=== PATIENT | female | born 1960 | race Caucasian/White ===

== ENCOUNTER 2019-09-19 11:05 | Emergency (ER) | payer MEDICARE ==
--- NOTE | 2019-09-19 11:09 | ERPHSYRPT ---
- History of Present Illness Time Seen by Provider: 09/19/19 11:09 Source: patient Exam Limitations: no limitations Physician History: This is a 59-year-old female who has metastatic breast cancer and has all intervention for her breast cancer. Patient was evaluated by an aide over the weekend. This aid is an employee of the patient's home health provider. The aide gave report to the home health service and stated that she performed the 10th test on the patient's skin and felt that the patient might be dehydrated. The instructions to this patient were to follow-up with your primary care doctor or go to the emergency room. Patient contacted her primary care physician who had not called her back and therefore she came to the emergency room. Patient is completely without complaints at all. Patient has no nausea no vomiting no diarrhea. She has no abdominal pain. She has been drinking fluids. She has no urinary tract infection symptoms. She is urinating normally for her per her report. Modifying Factors: Improves With: nothing Associated Symptoms: denies symptoms Allergies/Adverse Reactions: No Known Drug Allergies Allergy (Verified 09/19/19 11:24) Home Medications: Amlodipine Besylate 5 mg PO DAILY 09/29/14 [History] Hydrochlorothiazide 25 mg PO DAILY 09/29/14 [History] Metoprolol Succinate 50 mg PO DAILY 09/29/14 [History] Pravastatin Sodium 20 mg PO DAILY 09/29/14 [History] Anastrozole 1 mg PO DAILY 09/19/19 [History] Fluoxetine HCl 10 mg PO DAILY 09/19/19 [History] Hx Tetanus, Diphtheria Vaccination/Date Given: Yes (UNKNOWN) Hx Influenza Vaccination/Date Given: No Hx Pneumococcal Vaccination/Date Given: No - Review of Systems Constitutional: No Symptoms Eyes: No Symptoms Ears, Nose, & Throat: No Symptoms Respiratory: No Symptoms Cardiac: No Symptoms Abdominal/Gastrointestinal: No Symptoms Genitourinary Symptoms: No Symptoms Musculoskeletal: No Symptoms Skin: No Symptoms Neurological: No Symptoms Psychological: No Symptoms Endocrine: No Symptoms Hematologic/Lymphatic: No Symptoms Immunological/Allergic: No Symptoms All Other Systems: Reviewed and Negative - Past Medical History Pertinent Past Medical History: Yes Neurological History: No Pertinent History ENT History: No Pertinent History Cardiac History: Hypertension Respiratory History: No Pertinent History Endocrine Medical History: No Pertinent History Musculoskeletal History: No Pertinent History GI Medical History: No Pertinent History History: No Pertinent History Psycho-Social History: Other Female Reproductive Disorders: No Pertinent History Other Medical History: SCHIZOPHRENIA - Past Surgical History Past Surgical History: No Neuro Surgical History: No Pertinent History Cardiac: No Pertinent History Respiratory: No Pertinent History Gastrointestinal: No Pertinent History Genitourinary: No Pertinent History Musculoskeletal: No Pertinent History Female Surgical History: No Pertinent History - Social History Smoking Status: Never smoker Exposure to second hand smoke: No Drug Use: none Patient Lives Alone: No - Nursing Vital Signs Nursing Vital Signs: Initial Vital Signs Temperature 98.5 F 09/19/19 11:07 Pulse Rate 96 H 09/19/19 11:07 Blood Pressure 123/85 09/19/19 11:07 O2 Sat by Pulse Oximetry 98 09/19/19 11:07 Pain Scale Pain Intensity 0 - Physical Exam General Appearance: no apparent distress, alert Eye Exam: PERRL/EOMI, eyes nml inspection Ears, Nose, Throat Exam: normal ENT inspection, moist mucous membranes Neck Exam: normal inspection, non-tender, supple, full range of motion Respiratory Exam: normal breath sounds, lungs clear, airway intact, No chest tenderness, No respiratory distress Cardiovascular Exam: regular rate/rhythm, normal heart sounds, normal peripheral pulses Gastrointestinal/Abdomen Exam: soft, normal bowel sounds, No tenderness Pelvic Exam: not done Rectal Exam: not done Back Exam: normal inspection, normal range of motion, No CVA tenderness, No vertebral tenderness Extremity Exam: normal inspection, normal range of motion, pelvis stable Neurologic Exam: alert, oriented x 3, cooperative, food operations manager II-XII nml as tested, normal mood/affect, nml cerebellar function, nml station & gait Skin Exam: normal color, warm, dry Lymphatic Exam: No adenopathy SpO2 Interpretation: normal Ordered Tests: Active Orders 24 hr Category Date Time Status CULTURE,URINE Stat Lab 09/19/19 13:00 Received UA W/RFX UR CULTURE Stat Lab 09/19/19 13:00 Completed Medication Summary Discontinued Medications Generic Name Dose Route Start Last Admin Trade Name Antonioq PRN Reason Stop Dose Admin Ceftriaxone Sodium 1,000 mg 09/19/19 13:30 Rocephin 1000 Mg Inj IM 09/19/19 13:31 STAT ONE Lab/Rad Data: Laboratory Results 09/19/19 Range/Units 13:00 Urine Color STAR (YELLOW) Urine Appearance CLOUDY (CLEAR) Urine pH 5.0 (5-6) Ur Specific Taylor 1.027 (1.005-1.025) Urine Protein 100 (Negative) Urine Ketones TRACE (NEGATIVE) Urine Blood SMALL (0-5) Ian/ul Urine Nitrite NEGATIVE (NEGATIVE) Urine Bilirubin SMALL (NEGATIVE) Urine Urobilinogen 2 (0-1) mg/dL Ur Leukocyte Esterase LARGE (NEGATIVE) Urine WBC (Auto) 51-100 (0-5) /HPF Urine RBC (Auto) 6-10 (0-2) /HPF U Hyaline Cast (Auto) >50 (0-2) /LPF U Epithel Cells (Auto) FEW (FEW) /HPF Urine Bacteria (Auto) MODERATE (NEGATIVE) /HPF Urine Mucus (Auto) MANY (NEGATIVE) /HPF Urine Culture Reflexed YES (NO) Urine Glucose NEGATIVE (NEGATIVE) mg/dL - Progress Progress: unchanged Progress Note: 09/19/19 13:53 This patient has been drinking well during her hospitalization here in the emergency department. She does have trace ketones in her urine but refuses an IV and intravenous fluids. She does however want to be treated for her urinary tract infection. Counseled pt/family regarding: lab results, diagnosis, need for follow-up, rad results - Departure Departure Disposition: Home Clinical Impression: Urinary tract infection Condition: Stable Critical Care Time: No Referrals: DUSTIN BRUNSON MD [Primary Care Provider] - Additional Instructions: Drink plenty of fluids. Follow-up with your prescribing doctor for further management. Take your medications as prescribed. Prescriptions: Ciprofloxacin [Cipro 500 MG] 500 mg PO BID #14 tablet
[2019-09-19 11:22] VITALS: O2SAT 98
[2019-09-19 13:23] LABS: Appearance CLOUDY (CLEAR); Bacteria MODERATE /HPF (NEGATIVE); Bilirubin SMALL (NEGATIVE); Blood SMALL Ery/ul (0-5); Epithelial Cells FEW /HPF (FEW); Glucose NEGATIVE (NEGATIVE); Hyaline Casts >50 /LPF (0-2); Ketones TRACE (NEGATIVE); Leukocyte Esterase LARGE (NEGATIVE); Mucus MANY /HPF (NEGATIVE); Nitrite NEGATIVE (NEGATIVE); Protein,Urine Dip 100 (Negative); Specific Gravity 1.027 (1.005-1.025); Urobilinogen 2 mg/dL (0-1); WBC 51-100 /HPF (0-5)
[2019-09-19] MEDS ORDERED: Rocephin 1000 MG INJ IM ONE (13:30)
[2019-09-19] MEDS ORDERED: Rocephin 1000 MG INJ ONE (14:07)
[2019-09-19 14:37] VITALS: BP 116/80; PULSE 70
== END 2019-09-19 14:44 | disposition home or self-care (01) ==
LOC: ED 11:05
DX: N39.0 Urinary tract infection, site not specified (principal); I10 Essential (primary) hypertension
CPT/HCPCS: 81001; 87086; 96372; 99284; J0696

== ENCOUNTER 2019-10-17 20:09 | Emergency (ER) | payer MEDICARE ==
--- NOTE | 2019-10-17 21:19 | ERPHSYRPT ---
- History of Present Illness Time Seen by Provider: 10/17/19 20:18 Source: patient, EMS Exam Limitations: no limitations Patient Subjective Stated Complaint: fall Triage Nursing Assessment: pt to ED bt EMS c/o fall at home at 1800. pt states she was walking from couch to restroom and tripped. EMS applied C collar for fall. denies hitting head, no LOC, no blood thinners. no pain at this time, states "I just thought I should come get checked out." pt does have stage 4 breast cancer of the L breast which she has had 2 years and is not currently treating with chemo or radiation. pt sister called EMS for assistance up and to ED. pt A&Ox3, lung sounds clear and equal bilat, heart sounds clear, bowel sounds active in all quads. peripheral pulses good, cap refil <3 sec. no loss of sensation to extremities. pt has no complaints at this time. Physician History: 59 years old female with history of metastatic breast cancer not on chemo or radiation presented in the ER via EMS after she tripped while walking from couch to the bathroom and landed on left hip. She was not able to get up without assistance. She is complaining of mild dull aching pain in the left hip but is able to move her hip. She did not hit her head. No loss of consciousness. She denies any chest pain palpitations, dizziness or lightheadedness before or after the fall. Denies any recent fever or chills. Patient does not want any pain meds. Patient was placed in a c-collar because of the fall but did not hit her head. No neck pain. Patient report her sister wanted her to be checked out. Allergies/Adverse Reactions: No Known Drug Allergies Allergy (Verified 10/17/19 20:29) Home Medications: Amlodipine Besylate 5 mg PO DAILY 09/29/14 [History] Hydrochlorothiazide 25 mg PO DAILY 09/29/14 [History] Metoprolol Succinate 50 mg PO DAILY 09/29/14 [History] Pravastatin Sodium 20 mg PO DAILY 09/29/14 [History] Fluoxetine HCl 10 mg PO DAILY 09/19/19 [History] Hx Tetanus, Diphtheria Vaccination/Date Given: No Hx Influenza Vaccination/Date Given: Yes Hx Pneumococcal Vaccination/Date Given: No Immunizations Up to Date: No Travel Risk - International Travel Have you traveled outside of the country in past 3 weeks: No Have you or anyone close to you been diagnosed with or: No Do your reside in a community with a known COVID-19 case?: Yes If Yes where:: [place] - Coronavirus Screening Has patient experienced Coronavirus symptoms: No - Review of Systems Constitutional: No Symptoms Eyes: No Symptoms Ears, Nose, & Throat: No Symptoms Respiratory: No Symptoms Cardiac: No Symptoms Abdominal/Gastrointestinal: No Symptoms Genitourinary Symptoms: No Symptoms Musculoskeletal: Back Pain, Injury Skin: No Symptoms Neurological: No Symptoms Psychological: No Symptoms - Past Medical History Pertinent Past Medical History: Yes Neurological History: No Pertinent History ENT History: No Pertinent History Cardiac History: Hypertension Respiratory History: No Pertinent History Endocrine Medical History: No Pertinent History Musculoskeletal History: No Pertinent History GI Medical History: No Pertinent History History: No Pertinent History Psycho-Social History: Other Female Reproductive Disorders: No Pertinent History Other Medical History: SCHIZOPHRENIA, stage 4 breast cancer - Past Surgical History Past Surgical History: No Neuro Surgical History: No Pertinent History Cardiac: No Pertinent History Respiratory: No Pertinent History Gastrointestinal: No Pertinent History Genitourinary: No Pertinent History Musculoskeletal: No Pertinent History Female Surgical History: No Pertinent History - Social History Smoking Status: Never smoker Exposure to second hand smoke: No Drug Use: none Patient Lives Alone: No - Female History Hx Last Menstrual Period: post menopause Hx Now: No - Nursing Vital Signs Nursing Vital Signs: Initial Vital Signs Temperature 97.5 F 10/17/19 20:12 Pulse Rate 68 10/17/19 20:12 Respiratory Rate 17 10/17/19 20:12 Blood Pressure 132/78 10/17/19 20:12 O2 Sat by Pulse Oximetry 99 10/17/19 20:12 Pain Scale Pain Intensity 0 - Physical Exam General Appearance: no apparent distress Eyes, Ears, Nose, Throat Exam: normal ENT inspection, TMs normal Neck Exam: normal inspection, non-tender, supple, full range of motion Cardiovascular/Respiratory Exam: chest non-tender, normal breath sounds, regular rate/rhythm, no ecchymosis Gastrointestinal/Abdominal Exam: non-tender, soft Back Exam: normal inspection, normal range of motion, No vertebral tenderness Hips Exam: bilateral: non-tender, normal inspection, normal range of motion Legs Exam: bilateral leg: non-tender, normal inspection, normal range of motion Knees Exam: bilateral knee: non-tender, normal inspection, normal range of motion Neuro/Tendon Exam: normal sensation, normal motor functions Mental Status Exam: alert, oriented x 3, cooperative Skin Exam: normal color SpO2 Interpretation: normal SpO2: 99 - Course Nursing assessment & vital signs reviewed: Yes Ordered Tests: Active Orders 24 hr Category Date Time Status HIP SHIRA (4V) INCL PELV IF DONE Stat Exams 10/17/19 20:36 Taken - Progress Progress: improved, re-examined Progress Note: 10/17/19 22:19 She does not want any pain medication. I have obtained x-rays of left hip which are negative for any acute fracture. 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 She was able to get up and walk for x-rays. I have recommended using Rollator walker all the time to avoid any fall and fracture. I do not think she needs any further work-up and is stable for discharge with outpatient follow-up. C-collar is removed and is able to move her neck in all direction without any limitation. Counseled pt/family regarding: diagnosis, need for follow-up, rad results - Departure Departure Disposition: Home Clinical Impression: Hip pain, left Fall Qualifiers: Encounter type: initial encounter Qualified Code(s): W19.XXXA - Unspecified fall, initial encounter Condition: Stable Critical Care Time: No Referrals: DUSTIN BRUNSON MD [Primary Care Provider] - Follow Up with PCP/3 days Instructions: Preventing Falls Additional Instructions: use walker all the time for ambulation. follow up with PCP for re evaluation. return to ER for any worsening
[2019-10-17 21:42] VITALS: BP 137/92; PULSE 74
[2019-10-17 22:21] VITALS: O2SAT 99
--- NOTE | 2019-10-18 08:19 | XRAY ---
Indication: Pain following fall. History of breast cancer. Comparison: None AP pelvis and 2 views of the left hip demonstrates markedly diffuse bony sclerotic appearance favoring metastasis in this patient with history of breast cancer. No other bony, articular, or soft tissue abnormalities.
== END 2019-10-17 21:47 | disposition home or self-care (01) ==
LOC: ED 20:09
DX: M25.552 Pain in left hip (principal); W19.XXXA Unspecified fall, initial encounter
CPT/HCPCS: 73522; 99283

== ENCOUNTER 2019-10-20 12:17 | Observation (INO) | payer MEDICARE ==
[2019-10-20] MEDS ORDERED: Sodium Chloride 0.9% 1000 ML 1,000 ML IV STA (12:48)
--- NOTE | 2019-10-20 12:48 | ERPHSYRPT ---
- History of Present Illness Time Seen by Provider: 10/20/19 12:33 Source: patient, EMS Patient Subjective Stated Complaint: pt brought in by ambulance, she was found by her home health care nurse on floor today, unknown how long down, she was seen last by nurse yesterday, pt denies any injury, she is unclear on events . she has breast ca with mets Triage Nursing Assessment: pt arrived per ambulance, alert and oriented to person, place and time, but confused to events of fall . resp easy, skin w/d/ pale which pt states is normal for her, left breast hard and deformed which pt states ios normal and from [place] Physician History: 59 years old female with history of metastatic breast cancer not on any chemo/ radiation presented in the ER via EMS with chief complaint of fall and inability to get up. Home health found her on the floor and with help she was able to get up and ambulate. She is feeling weak all over with no energy to do anything. She feels tired and fatigued all the time. Patient has been falling frequently lately. She did not hit her head. No loss of consciousness. She remembers the whole sequence of event and reports she tripped on something leading to fall. Denies any chest pain palpitations or shortness of breath. No abdominal pain nausea or vomiting. Denies any focal weakness. She is not a very good historian and history is limited. Timing/Duration: today Severity: moderate Modifying Factors: Improves With: nothing Associated Symptoms: loss of appetite, malaise, weakness Allergies/Adverse Reactions: No Known Drug Allergies Allergy (Verified 10/20/19 12:36) Home Medications: Amlodipine Besylate 5 mg PO DAILY 09/29/14 [History] Hydrochlorothiazide 25 mg PO DAILY 09/29/14 [History] Metoprolol Succinate 50 mg PO DAILY 09/29/14 [History] Pravastatin Sodium 20 mg PO DAILY 09/29/14 [History] Fluoxetine HCl 10 mg PO DAILY 09/19/19 [History] Hx Tetanus, Diphtheria Vaccination/Date Given: No Hx Influenza Vaccination/Date Given: Yes Hx Pneumococcal Vaccination/Date Given: No Immunizations Up to Date: Yes Travel Risk - International Travel Have you traveled outside of the country in past 3 weeks: No Have you or anyone close to you been diagnosed with or: No Do your reside in a community with a known COVID-19 case?: Yes If Yes where:: [place] - Coronavirus Screening Has patient experienced Coronavirus symptoms: No - Review of Systems Constitutional: Fatigue, Malaise, Weakness Eyes: No Symptoms Ears, Nose, & Throat: No Symptoms Respiratory: No Symptoms Cardiac: No Symptoms Abdominal/Gastrointestinal: No Symptoms Genitourinary Symptoms: No Symptoms Musculoskeletal: Fall Skin: No Symptoms Neurological: No Symptoms Endocrine: No Symptoms Hematologic/Lymphatic: No Symptoms Immunological/Allergic: No Symptoms - Past Medical History Pertinent Past Medical History: Yes Neurological History: No Pertinent History ENT History: No Pertinent History Cardiac History: Hypertension Respiratory History: No Pertinent History Endocrine Medical History: No Pertinent History Musculoskeletal History: No Pertinent History GI Medical History: No Pertinent History History: No Pertinent History Psycho-Social History: Other Female Reproductive Disorders: No Pertinent History Other Medical History: SCHIZOPHRENIA, stage 4 breast cancer - Past Surgical History Past Surgical History: No Neuro Surgical History: No Pertinent History Cardiac: No Pertinent History Respiratory: No Pertinent History Gastrointestinal: No Pertinent History Genitourinary: No Pertinent History Musculoskeletal: No Pertinent History Female Surgical History: No Pertinent History - Social History Smoking Status: Never smoker Exposure to second hand smoke: No Drug Use: none Patient Lives Alone: No - Female History Hx Last Menstrual Period: post Hx Now: No - Nursing Vital Signs Nursing Vital Signs: Initial Vital Signs Temperature 97.9 F 10/20/19 12:26 Pulse Rate 84 10/20/19 12:26 Respiratory Rate 20 10/20/19 12:26 Blood Pressure 146/84 10/20/19 12:26 O2 Sat by Pulse Oximetry 99 10/20/19 12:26 Pain Scale Pain Intensity 0 - Physical Exam General Appearance: no apparent distress Eye Exam: PERRL/EOMI, eyes nml inspection, pale conjunctivae Ears, Nose, Throat Exam: normal ENT inspection, TMs normal Neck Exam: normal inspection, non-tender, supple Respiratory Exam: normal breath sounds, lungs clear, No chest tenderness Cardiovascular Exam: regular rate/rhythm, normal heart sounds Gastrointestinal/Abdomen Exam: soft, normal bowel sounds, No tenderness Rectal Exam: normal exam, normal rectal tone Back Exam: normal inspection, normal range of motion Extremity Exam: normal inspection, normal range of motion Neurologic Exam: alert, oriented x 3, cooperative, permit coordinator II-XII nml as tested Skin Exam: normal color, warm SpO2 Interpretation: normal SpO2: 99 O2 Delivery: Room Air - Course Nursing assessment & vital signs reviewed: Yes EKG Interpreted by Me: RATE ([id number]), NORMAL AXIS, NORMAL QRS, Non-specific ST Changes Ordered Tests: Active Orders 24 hr Category Date Time Status IV Insertion STAT Care 10/20/19 12:48 Active CHEST 1 VIEW (PORTABLE) Stat Exams 10/20/19 12:49 Completed PELVIS (1 OR 2 VIEWS) Routine Exams 10/20/19 12:56 Completed BLOOD CULTURE Stat Lab 10/20/19 14:29 Received BNP [NT PRO BNP] Stat Lab 10/20/19 14:29 Completed CBC W DIFF Stat Lab 10/20/19 12:48 Completed CK (IN-HOUSE) [CK-Creatinine Phosphokinase] Stat Lab 10/20/19 12:48 Completed CMP Stat Lab 10/20/19 12:48 Completed CULTURE,URINE Stat Lab 10/20/19 14:00 Received Calcium, Ionized Stat Lab 10/20/19 14:13 Completed Lactic Acid Stat Lab 10/20/19 13:12 Completed MAG [MAGNESIUM] Stat Lab 10/20/19 14:45 Completed TROPONIN Q3H Lab 10/20/19 14:29 Received TROPONIN Q3H Lab 10/20/19 17:15 Ordered TROPONIN Q3H Lab 10/20/19 20:15 Ordered TROPONIN Q3H Lab 10/20/19 23:15 Ordered UA W/RFX UR CULTURE Stat Lab 10/20/19 14:00 Completed Transfer Order Routine Transfer 10/20/19 Ordered Medication Summary Discontinued Medications Generic Name Dose Route Start Last Admin Trade Name Freq PRN Reason Stop Dose Admin Sodium Chloride 1,000 mls @ 499 mls/hr 10/20/19 12:48 10/20/19 13:03 Sodium Chloride 0.9% 1000 Ml IV 10/20/19 14:48 499 mls/hr .Q2H1M STA Administration Sodium Chloride Confirm 10/20/19 12:56 Sodium Chloride 0.9% 1000 Ml Administered 10/20/19 12:57 Dose 1,000 mls @ ud .ROUTE .STK-MED ONE ZOLEDRONIC ACID 5 MG/100 ML 5 mg in 100 mls @ 400 mls/hr 10/20/19 14:30 10/19 14:25 Zoledronic Acid 5 Mg/100 Ml IV 10/20/19 14:44 400 mls/hr NOW ONE Administration Lab/Rad Data: Laboratory Result Diagrams 10/20/19 12:48 10/20/19 12:48 Laboratory Results 10/20/19 10/20/19 10/20/19 Range/Units 14:45 14:29 14:13 WBC (4.0-10.5) K/mm3 RBC (4.1-5.4) M/mm3 Hgb (12.0-16.0) gm/dl Hct (35-47) % MCV (78-100) fl MCH (26-32) pg MCHC (32-36) g/dl RDW (11.5-14.0) % Plt Count (150-450) K/mm3 MPV (7.5-11.0) fl Gran % (36.0-66.0) % Eos # (Auto) (0-0.5) Absolute Lymphs (auto) (1.0-4.6) Absolute Monos (auto) (0.0-1.3) Lymphocytes % (24.0-44.0) % Monocytes % (0.0-12.0) % Eosinophils % (0.00-5.0) % Basophils % (0.0-0.4) % Absolute Granulocytes (1.4-6.9) Basophils # (0-0.4) Ionized Calcium 1.98 H* (1.12-1.32) mmol/L Sodium (137-145) mmol/L Potassium (3.5-5.1) mmol/L Chloride (98-107) mmol/L Carbon Dioxide (22-30) mmol/L Anion Gap (5-15) MEQ/L BUN (7-17) mg/dL Creatinine (0.52-1.04) mg/dL Estimated GFR ML/MIN Glucose (74-106) mg/dL Lactic Acid (0.4-2.0) Calcium (8.4-10.2) mg/dL Magnesium 1.8 (1.6-2.3) mg/dL Total Bilirubin (0.2-1.3) mg/dL AST (14-36) U/L ALT (0-35) U/L Alkaline Phosphatase (38-126) U/L Creatine Kinase (30-135) U/L NT-Pro-B Natriuret Pep 1930 H (0-900) pg/mL Serum Total Protein (6.3-8.2) g/dL Albumin (3.5-5.0) g/dL Urine Color (YELLOW) Urine Appearance (CLEAR) Urine pH (5-6) Ur Specific [place] (1.005-1.025) Urine Protein (Negative) Urine Ketones (NEGATIVE) Urine Blood (0-5) Ian/ul Urine Nitrite (NEGATIVE) Urine Bilirubin (NEGATIVE) Urine Urobilinogen (0-1) mg/dL Ur Leukocyte Esterase (NEGATIVE) Urine WBC (Auto) (0-5) /HPF Urine RBC (Auto) (0-2) /HPF U Hyaline Cast (Auto) (0-2) /LPF U Epithel Cells (Auto) (FEW) /HPF Urine Bacteria (Auto) (NEGATIVE) /HPF Urine Mucus (Auto) (NEGATIVE) /HPF Urine Culture Reflexed (NO) Urine Glucose (NEGATIVE) mg/dL 10/20/19 10/20/19 10/20/19 Range/Units 14:00 13:12 12:48 WBC (4.0-10.5) K/mm3 RBC (4.1-5.4) M/mm3 Hgb (12.0-16.0) gm/dl Hct (35-47) % MCV (78-100) fl MCH (26-32) pg MCHC (32-36) g/dl RDW (11.5-14.0) % Plt Count (150-450) K/mm3 MPV (7.5-11.0) fl Gran % (36.0-66.0) % Eos # (Auto) (0-0.5) Absolute Lymphs (auto) (1.0-4.6) Absolute Monos (auto) (0.0-1.3) Lymphocytes % (24.0-44.0) % Monocytes % (0.0-12.0) % Eosinophils % (0.00-5.0) % Basophils % (0.0-0.4) % Absolute Granulocytes (1.4-6.9) Basophils # (0-0.4) Ionized Calcium (1.12-1.32) mmol/L Sodium (137-145) mmol/L Potassium (3.5-5.1) mmol/L Chloride (98-107) mmol/L Carbon Dioxide (22-30) mmol/L Anion Gap (5-15) MEQ/L BUN (7-17) mg/dL Creatinine (0.52-1.04) mg/dL Estimated GFR ML/MIN Glucose (74-106) mg/dL Lactic Acid 2.2 H (0.4-2.0) Calcium (8.4-10.2) mg/dL Magnesium (1.6-2.3) mg/dL Total Bilirubin (0.2-1.3) mg/dL AST (14-36) U/L ALT (0-35) U/L Alkaline Phosphatase (38-126) U/L Creatine Kinase 425 H (30-135) U/L NT-Pro-B Natriuret Pep (0-900) pg/mL Serum Total Protein (6.3-8.2) g/dL Albumin (3.5-5.0) g/dL Urine Color YELLOW (YELLOW) Urine Appearance CLOUDY (CLEAR) Urine pH 5.0 (5-6) Ur Specific [place] 1.021 (1.005-1.025) Urine Protein 30 (Negative) Urine Ketones NEGATIVE (NEGATIVE) Urine Blood LARGE (0-5) Ian/ul Urine Nitrite NEGATIVE (NEGATIVE) Urine Bilirubin NEGATIVE (NEGATIVE) Urine Urobilinogen NEGATIVE (0-1) mg/dL Ur Leukocyte Esterase TRACE (NEGATIVE) Urine WBC (Auto) 11-15 (0-5) /HPF Urine RBC (Auto) 3-5 (0-2) /HPF U Hyaline Cast (Auto) 6-10 (0-2) /LPF U Epithel Cells (Auto) NONE (FEW) /HPF Urine Bacteria (Auto) FEW (NEGATIVE) /HPF Urine Mucus (Auto) SLIGHT (NEGATIVE) /HPF Urine Culture Reflexed YES (NO) Urine Glucose NEGATIVE (NEGATIVE) mg/dL 10/20/19 10/20/19 Range/Units 12:48 12:48 WBC 8.3 (4.0-10.5) K/mm3 RBC 2.67 L (4.1-5.4) M/mm3 Hgb 7.5 L (12.0-16.0) gm/dl Hct 25.1 L (35-47) % MCV 94.0 (78-100) fl MCH 28.1 (26-32) pg MCHC 29.9 L (32-36) g/dl RDW 16.4 H (11.5-14.0) % Plt Count 400 (150-450) K/mm3 MPV 9.2 (7.5-11.0) fl Gran % 71.4 H (36.0-66.0) % Eos # (Auto) 0.02 (0-0.5) Absolute Lymphs (auto) 1.68 (1.0-4.6) Absolute Monos (auto) 0.68 (0.0-1.3) Lymphocytes % 20.1 L (24.0-44.0) % Monocytes % 8.2 (0.0-12.0) % Eosinophils % 0.2 (0.00-5.0) % Basophils % 0.1 (0.0-0.4) % Absolute Granulocytes 5.95 (1.4-6.9) Basophils # 0.01 (0-0.4) Ionized Calcium (1.12-1.32) mmol/L Sodium 135 L (137-145) mmol/L Potassium 3.4 L (3.5-5.1) mmol/L Chloride 91 L (98-107) mmol/L Carbon Dioxide 37 H (22-30) mmol/L Anion Gap 10.8 (5-15) MEQ/L BUN 54 H (7-17) mg/dL Creatinine 2.06 H (0.52-1.04) mg/dL Estimated GFR 26.2 ML/MIN Glucose 136 H (74-106) mg/dL Lactic Acid (0.4-2.0) Calcium 14.2 H* (8.4-10.2) mg/dL Magnesium (1.6-2.3) mg/dL Total Bilirubin 0.60 (0.2-1.3) mg/dL AST 94 H (14-36) U/L ALT 38 H (0-35) U/L Alkaline Phosphatase 307 H (38-126) U/L Creatine Kinase (30-135) U/L NT-Pro-B Natriuret Pep (0-900) pg/mL Serum Total Protein 7.9 (6.3-8.2) g/dL Albumin 3.5 (3.5-5.0) g/dL Urine Color (YELLOW) Urine Appearance (CLEAR) Urine pH (5-6) Ur Specific [place] (1.005-1.025) Urine Protein (Negative) Urine Ketones (NEGATIVE) Urine Blood (0-5) Ian/ul Urine Nitrite (NEGATIVE) Urine Bilirubin (NEGATIVE) Urine Urobilinogen (0-1) mg/dL Ur Leukocyte Esterase (NEGATIVE) Urine WBC (Auto) (0-5) /HPF Urine RBC (Auto) (0-2) /HPF U Hyaline Cast (Auto) (0-2) /LPF U Epithel Cells (Auto) (FEW) /HPF Urine Bacteria (Auto) (NEGATIVE) /HPF Urine Mucus (Auto) (NEGATIVE) /HPF Urine Culture Reflexed (NO) Urine Glucose (NEGATIVE) mg/dL - Progress Progress: re-examined Progress Note: 10/20/19 14:40 59 years old with metastatic breast cancer is evaluated for frequent falls. Patient is pale looking with her hemoglobin of 7.5. I have obtained stool occult which is pending at present. She is given fluid bolus. She has a serum calcium of more than 14 and ionized calcium of 1.98 which I believe is secondary to her monitor his option and osteoclastic activity from cancer all over. She also has renal failure and will hydrate her, will hold off on Lasix for now and once she is feeling better and renal functions are improved can go with Lasix as well for hypercalcemia. EKG showed sinus rhythm no acute ST elevations. I have discussed with Dr. Nj patient is being admitted. I have also tried to get hold of her son who is the power of litigation attorney but was not successful. Discussed with : Richard Will see patient in: hospital (observation) Counseled pt/family regarding: lab results, diagnosis, rad results - Departure Departure Disposition: Observation Clinical Impression: Hypercalcemia, Falls frequently, Metastatic breast cancer Renal failure Qualifiers: Renal failure chronicity: acute Acute renal failure type: unspecified Qualified Code(s): N17.9 - Acute kidney failure, unspecified Condition: Critical Critical Care Time: Yes Critical Care Time(excluding separately billable procedures): Critical 30-74 mins
[2019-10-20] MEDS ORDERED: Sodium Chloride 0.9% 1000 ML 1,000 ML ONE (12:56)
[2019-10-20 13:28] LABS: Absolute Neutrophil Ct (ANC) 5.95 (1.4-6.9); BASOPHIL % 0.1 % (0.0-0.4); Basophil (Absolute #) 0.01 (0-0.4); Eosinophil % 0.2 % (0.00-5.0); Eosinophil (Absolute #) 0.02 (0-0.5); Hematocrit 25.1 % (35-47); Hemoglobin 7.5 gm/dl (12.0-16.0); Lymphocyte (Absolute #) 1.68 (1.0-4.6); Lymphocytes % 20.1 % (24.0-44.0); Mean Corpuscular Hemoglobin 28.1 pg (26-32); Mean Corpuscular Hgb Concent. 29.9 g/dl (32-36); Mean Platelet Volume 9.2 fl (7.5-11.0); Monocyte (Absolute #) 0.68 (0.0-1.3); Monocytes % 8.2 % (0.0-12.0); Neutrophil % 71.4 % (36.0-66.0); Platelet Count 400 K/mm3 (150-450); Red Blood Count 2.67 M/mm3 (4.1-5.4); Red Cell Distribution Width 16.4 % (11.5-14.0); White Blood Count 8.3 K/mm3 (4.0-10.5)
[2019-10-20 13:36] LABS: ALBUMIN 3.5 g/dL (3.5-5.0); ANION GAP 10.8 MEQ/L (5-15); BILIRUBIN,TOTAL 0.6 mg/dL (0.2-1.3); Creatinine 1 2.06 mg/dL (0.52-1.04); Potassium 3.4 mmol/L (3.5-5.1); Total Protein 7.9 g/dL (6.3-8.2)
[2019-10-20 13:54] LABS: Calcium 14.2 mg/dL (8.4-10.2)
--- NOTE | 2019-10-20 14:01 | XRAY ---
Indication: General weakness. History of breast cancer. Comparison: None Single portable chest demonstrates 3.4 x 6.8 cm left paratracheal soft tissue mass probable metastatic lymphadenopathy. Remaining heart and lungs unremarkable. Bony thorax demonstrates diffuse osteoblastic metastasis.
--- NOTE | 2019-10-20 14:04 | XRAY ---
Indication: Status post fall. History of breast cancer. Comparison: October 17, 2019. Single AP pelvis unchanged again demonstrating diffuse osteoblastic metastasis. No new/acute bony, articular, or soft tissue abnormalities.
[2019-10-20] MEDS ORDERED: ZOLEDRONIC ACID 5 MG/100 ML IV STA (14:14)
[2019-10-20 14:25] LABS: Appearance CLOUDY (CLEAR); Bacteria FEW /HPF (NEGATIVE); Bilirubin NEGATIVE (NEGATIVE); Blood LARGE Ery/ul (0-5); Glucose NEGATIVE (NEGATIVE); Ketones NEGATIVE (NEGATIVE); Leukocyte Esterase TRACE (NEGATIVE); Mucus SLIGHT /HPF (NEGATIVE); Nitrite NEGATIVE (NEGATIVE); Protein,Urine Dip 30 (Negative); Specific Gravity 1.021 (1.005-1.025); Urobilinogen NEGATIVE mg/dL (0-1)
[2019-10-20] MEDS ORDERED: ZOLEDRONIC ACID 5 MG/100 ML IV ONE (14:30)
[2019-10-20] MEDS ORDERED: HUMALOG SQ PRN (17:16)
[2019-10-20] MEDS: Sodium Chloride 0.9% 1000 ML 1,000 ML IV SCH (17:55)
[2019-10-20] MEDS ORDERED: Zofran 4 MG/2 ML VIAL IV PRN (18:12)
[2019-10-21] MEDS: Sodium Chloride 0.9% 1000 ML 1,000 ML IV SCH ×3 (01:51→20:05)
[2019-10-21 04:52] LABS: Absolute Neutrophil Ct (ANC) 5.09 (1.4-6.9); BASOPHIL % 0.1 % (0.0-0.4); Basophil (Absolute #) 0.01 (0-0.4); Eosinophil % 0.3 % (0.00-5.0); Eosinophil (Absolute #) 0.02 (0-0.5); Lymphocyte (Absolute #) 1.24 (1.0-4.6); Lymphocytes % 18.1 % (24.0-44.0); Mean Cell Volume 95.7 fl (78-100); Mean Corpuscular Hemoglobin 28.3 pg (26-32); Mean Corpuscular Hgb Concent. 29.5 g/dl (32-36); Monocyte (Absolute #) 0.48 (0.0-1.3); Neutrophil % 74.5 % (36.0-66.0); Platelet Count 342 K/mm3 (150-450); White Blood Count 6.8 K/mm3 (4.0-10.5)
[2019-10-21 05:02] LABS: Hemoglobin 6.5 gm/dl (12.0-16.0)
[2019-10-21 05:04] LABS: ALBUMIN 2.7 g/dL (3.5-5.0); BILIRUBIN,TOTAL 0.5 mg/dL (0.2-1.3); Creatinine 1 1.58 mg/dL (0.52-1.04); Potassium 3.3 mmol/L (3.5-5.1); Total Protein 6.3 g/dL (6.3-8.2)
[2019-10-21 05:08] LABS: Calcium 11.6 mg/dL (8.4-10.2)
[2019-10-21 07:25] LABS: ABO TYPING A; Antibody Screen NEGATIVE (NEGATIVE); RH TYPING POSITIVE
[2019-10-21] MEDS ORDERED: MEDICATION INTERVENTION MC SCH (07:30)
[2019-10-21 08:28] LABS: CROSS MATCH (PRBC) COMPATIBLE (COMPATIBLE)
--- NOTE | 2019-10-21 09:04 | PCM.SSS ---
History of Present Illness - Chief Complaint Chief Complaint: SEPSIS History of Present Illness: is a 59 year old female with stage 4 metastatic breast cancer, she has known bone mets, lives by herself and has home health. She has had multiple falls recently, she is currently not on any treatment for her breast cancer. her sister states she has not been taking much by mouth in the last week or so. she has been hydrated overnight and denies any complaints today. - Review of Systems Constitutional: Weakness, No Fever, No Chills Eyes: No Symptoms Respiratory: No Cough, No Short Of Breath Cardiac: No Chest Pain, No Edema, No Syncope Abdominal/Gastrointestinal: No Abdominal Pain, No Nausea, No Vomiting, No Diarrhea Genitourinary Symptoms: No Dysuria Musculoskeletal: No Back Pain, No Neck Pain Skin: No Rash All Other Systems: Reviewed and Negative Medications & Allergies Home Medications: Home Medication List Amlodipine Besylate 5 mg PO DAILY 09/29/14 [History Confirmed 10/20/19] Hydrochlorothiazide 25 mg PO DAILY 09/29/14 [History Confirmed 10/20/19] Metoprolol Succinate 50 mg PO DAILY 09/29/14 [History Confirmed 10/20/19] Pravastatin Sodium 20 mg PO DAILY 09/29/14 [History Confirmed 10/20/19] Fluoxetine HCl 10 mg PO DAILY 09/19/19 [History Confirmed 10/20/19] Anastrozole 1 mg PO DAILY 10/20/19 [History Confirmed 10/20/19] Cyanocobalamin (Vitamin B-12) [Vitamin B-12] 1,000 mcg PO DAILY 10/20/19 [ History Confirmed 10/20/19] ondansetron HCL [Ondansetron HCl] 4 mg PO TIDPRN PRN 10/20/19 [History Confirmed 10/20/19] Allergies/Adverse Reactions: Allergies Allergy/AdvReac Type Severity Reaction Status Date / Time No Known Drug Allergies Allergy Verified 10/20/19 12:36 - Past Medical History Past Medical History: Yes Neurological History: No Pertinent History ENT History: No Pertinent History Cardiac History: No Pertinent History Respiratory History: No Pertinent History Endocrine Medical History: No Pertinent History Musculoskelatal History: Other GI Medical History: No Pertinent History History: No Pertinent History Pyscho-Social History: No Pertinent History Reproductive Disorders: Breast Cancer Comment: SCHIZOPHRENIA, stage 4 breast cancer - Female History Hx Last Menstrual Period: post Are you now?: No - Past Surgical History Past Surgical History: No Neuro Surgical History: No Pertinent History Cardiac History: No Pertinent History Respiratory Surgery: No Pertinent History GI Surgical History: No Pertinent History Genitourinary Surgical Hx: No Pertinent History Musculskeletal Surgical Hx: No Pertinent History Female Surgical History: No Pertinent History Other Surgical History: Has breast CA with mets to bone and lungs. - Social History Smoking Status: Never smoker Exposure to second hand smoke: No Alcohol: None Drug Use: none - Physical Exam Vital Signs: Vital Signs - 24 hr Temp Pulse Resp BP Pulse Ox 10/21/19 08:52 98 10/21/19 07:14 99.2 F 104 H 24 105/55 90 L 10/21/19 04:13 99.6 F 105 H 18 121/60 94 L 10/20/19 23:28 98.4 F 101 H 20 112/60 97 10/20/19 19:18 98.4 F 98 H 18 121/59 95 10/20/19 17:19 98.5 F 92 H 20 128/65 95 10/20/19 16:00 77 18 137/77 98 10/20/19 15:12 99 10/20/19 14:03 83 20 137/80 98 10/20/19 12:26 97.9 F 84 20 146/84 99 General Appearance: no apparent distress Neurologic Exam: alert, cooperative Respiratory Exam: normal breath sounds, lungs clear, No respiratory distress Cardiovascular Exam: regular rate/rhythm, normal heart sounds, normal peripheral pulses Gastrointestinal/Abdomen Exam: soft, normal bowel sounds, No tenderness, No mass Extremity Exam: normal inspection, normal range of motion, pelvis stable Skin Exam: normal color, warm, dry, No rash Results - Labs Lab/Micro Results: Lab Results-Last 24 Hours 10/20/19 10/20/19 10/20/19 Range/Units 12:48 12:48 12:48 WBC 8.3 (4.0-10.5) K/mm3 RBC 2.67 L (4.1-5.4) M/mm3 Hgb 7.5 L (12.0-16.0) gm/dl Hct 25.1 L (35-47) % MCV 94.0 (78-100) fl MCH 28.1 (26-32) pg MCHC 29.9 L (32-36) g/dl RDW 16.4 H (11.5-14.0) % Plt Count 400 (150-450) K/mm3 MPV 9.2 (7.5-11.0) fl Gran % 71.4 H (36.0-66.0) % Eos # (Auto) 0.02 (0-0.5) Absolute Lymphs (auto) 1.68 (1.0-4.6) Absolute Monos (auto) 0.68 (0.0-1.3) Lymphocytes % 20.1 L (24.0-44.0) % Monocytes % 8.2 (0.0-12.0) % Eosinophils % 0.2 (0.00-5.0) % Basophils % 0.1 (0.0-0.4) % Absolute Granulocytes 5.95 (1.4-6.9) Basophils # 0.01 (0-0.4) Ionized Calcium (1.12-1.32) mmol/L Sodium 135 L (137-145) mmol/L Potassium 3.4 L (3.5-5.1) mmol/L Chloride 91 L (98-107) mmol/L Carbon Dioxide 37 H (22-30) mmol/L Anion Gap 10.8 (5-15) MEQ/L BUN 54 H (7-17) mg/dL Creatinine 2.06 H (0.52-1.04) mg/dL Estimated GFR 26.2 ML/MIN Glucose 136 H (74-106) mg/dL Lactic Acid (0.4-2.0) Calcium 14.2 H* (8.4-10.2) mg/dL Magnesium (1.6-2.3) mg/dL Total Bilirubin 0.60 (0.2-1.3) mg/dL AST 94 H (14-36) U/L ALT 38 H (0-35) U/L Alkaline Phosphatase 307 H (38-126) U/L Creatine Kinase 425 H (30-135) U/L Troponin I (0.000-0.034) ng/mL NT-Pro-B Natriuret Pep (0-900) pg/mL Serum Total Protein 7.9 (6.3-8.2) g/dL Albumin 3.5 (3.5-5.0) g/dL PTH Intact (15-72) pg/mL Urine Color (YELLOW) Urine Appearance (CLEAR) Urine pH (5-6) Ur Specific [place] (1.005-1.025) Urine Protein (Negative) Urine Ketones (NEGATIVE) Urine Blood (0-5) Ian/ul Urine Nitrite (NEGATIVE) Urine Bilirubin (NEGATIVE) Urine Urobilinogen (0-1) mg/dL Ur Leukocyte Esterase (NEGATIVE) Urine WBC (Auto) (0-5) /HPF Urine RBC (Auto) (0-2) /HPF U Hyaline Cast (Auto) (0-2) /LPF U Epithel Cells (Auto) (FEW) /HPF Urine Bacteria (Auto) (NEGATIVE) /HPF Urine Mucus (Auto) (NEGATIVE) /HPF Urine Culture Reflexed (NO) Urine Glucose (NEGATIVE) mg/dL Stool Occult Bld Scrn (NEGATIVE) ABO Group Rh Factor Antibody Screen (NEGATIVE) Crossmatch (COMPATIBLE) 10/20/19 10/20/19 10/20/19 Range/Units 13:12 14:00 14:13 WBC (4.0-10.5) K/mm3 RBC (4.1-5.4) M/mm3 Hgb (12.0-16.0) gm/dl Hct (35-47) % MCV (78-100) fl MCH (26-32) pg MCHC (32-36) g/dl RDW (11.5-14.0) % Plt Count (150-450) K/mm3 MPV (7.5-11.0) fl Gran % (36.0-66.0) % Eos # (Auto) (0-0.5) Absolute Lymphs (auto) (1.0-4.6) Absolute Monos (auto) (0.0-1.3) Lymphocytes % (24.0-44.0) % Monocytes % (0.0-12.0) % Eosinophils % (0.00-5.0) % Basophils % (0.0-0.4) % Absolute Granulocytes (1.4-6.9) Basophils # (0-0.4) Ionized Calcium 1.98 H* (1.12-1.32) mmol/L Sodium (137-145) mmol/L Potassium (3.5-5.1) mmol/L Chloride (98-107) mmol/L Carbon Dioxide (22-30) mmol/L Anion Gap (5-15) MEQ/L BUN (7-17) mg/dL Creatinine (0.52-1.04) mg/dL Estimated GFR ML/MIN Glucose (74-106) mg/dL Lactic Acid 2.2 H (0.4-2.0) Calcium (8.4-10.2) mg/dL Magnesium (1.6-2.3) mg/dL Total Bilirubin (0.2-1.3) mg/dL AST (14-36) U/L ALT (0-35) U/L Alkaline Phosphatase (38-126) U/L Creatine Kinase (30-135) U/L Troponin I (0.000-0.034) ng/mL NT-Pro-B Natriuret Pep (0-900) pg/mL Serum Total Protein (6.3-8.2) g/dL Albumin (3.5-5.0) g/dL PTH Intact (15-72) pg/mL Urine Color YELLOW (YELLOW) Urine Appearance CLOUDY (CLEAR) Urine pH 5.0 (5-6) Ur Specific [place] 1.021 (1.005-1.025) Urine Protein 30 (Negative) Urine Ketones NEGATIVE (NEGATIVE) Urine Blood LARGE (0-5) Ian/ul Urine Nitrite NEGATIVE (NEGATIVE) Urine Bilirubin NEGATIVE (NEGATIVE) Urine Urobilinogen NEGATIVE (0-1) mg/dL Ur Leukocyte Esterase TRACE (NEGATIVE) Urine WBC (Auto) 11-15 (0-5) /HPF Urine RBC (Auto) 3-5 (0-2) /HPF U Hyaline Cast (Auto) 6-10 (0-2) /LPF U Epithel Cells (Auto) NONE (FEW) /HPF Urine Bacteria (Auto) FEW (NEGATIVE) /HPF Urine Mucus (Auto) SLIGHT (NEGATIVE) /HPF Urine Culture Reflexed YES (NO) Urine Glucose NEGATIVE (NEGATIVE) mg/dL Stool Occult Bld Scrn (NEGATIVE) ABO Group Rh Factor Antibody Screen (NEGATIVE) Crossmatch (COMPATIBLE) 10/20/19 10/20/19 10/20/19 Range/Units 14:29 14:29 14:29 WBC (4.0-10.5) K/mm3 RBC (4.1-5.4) M/mm3 Hgb (12.0-16.0) gm/dl Hct (35-47) % MCV (78-100) fl MCH (26-32) pg MCHC (32-36) g/dl RDW (11.5-14.0) % Plt Count (150-450) K/mm3 MPV (7.5-11.0) fl Gran % (36.0-66.0) % Eos # (Auto) (0-0.5) Absolute Lymphs (auto) (1.0-4.6) Absolute Monos (auto) (0.0-1.3) Lymphocytes % (24.0-44.0) % Monocytes % (0.0-12.0) % Eosinophils % (0.00-5.0) % Basophils % (0.0-0.4) % Absolute Granulocytes (1.4-6.9) Basophils # (0-0.4) Ionized Calcium (1.12-1.32) mmol/L Sodium (137-145) mmol/L Potassium (3.5-5.1) mmol/L Chloride (98-107) mmol/L Carbon Dioxide (22-30) mmol/L Anion Gap (5-15) MEQ/L BUN (7-17) mg/dL Creatinine (0.52-1.04) mg/dL Estimated GFR ML/MIN Glucose (74-106) mg/dL Lactic Acid (0.4-2.0) Calcium (8.4-10.2) mg/dL Magnesium (1.6-2.3) mg/dL Total Bilirubin (0.2-1.3) mg/dL AST (14-36) U/L ALT (0-35) U/L Alkaline Phosphatase (38-126) U/L Creatine Kinase (30-135) U/L Troponin I < 0.012 (0.000-0.034) ng/mL NT-Pro-B Natriuret Pep 1930 H (0-900) pg/mL Serum Total Protein (6.3-8.2) g/dL Albumin (3.5-5.0) g/dL PTH Intact 6 L (15-72) pg/mL Urine Color (YELLOW) Urine Appearance (CLEAR) Urine pH (5-6) Ur Specific [place] (1.005-1.025) Urine Protein (Negative) Urine Ketones (NEGATIVE) Urine Blood (0-5) Ian/ul Urine Nitrite (NEGATIVE) Urine Bilirubin (NEGATIVE) Urine Urobilinogen (0-1) mg/dL Ur Leukocyte Esterase (NEGATIVE) Urine WBC (Auto) (0-5) /HPF Urine RBC (Auto) (0-2) /HPF U Hyaline Cast (Auto) (0-2) /LPF U Epithel Cells (Auto) (FEW) /HPF Urine Bacteria (Auto) (NEGATIVE) /HPF Urine Mucus (Auto) (NEGATIVE) /HPF Urine Culture Reflexed (NO) Urine Glucose (NEGATIVE) mg/dL Stool Occult Bld Scrn (NEGATIVE) ABO Group Rh Factor Antibody Screen (NEGATIVE) Crossmatch (COMPATIBLE) 10/20/19 10/20/19 10/20/19 Range/Units 14:45 15:15 16:35 WBC (4.0-10.5) K/mm3 RBC (4.1-5.4) M/mm3 Hgb (12.0-16.0) gm/dl Hct (35-47) % MCV (78-100) fl MCH (26-32) pg MCHC (32-36) g/dl RDW (11.5-14.0) % Plt Count (150-450) K/mm3 MPV (7.5-11.0) fl Gran % (36.0-66.0) % Eos # (Auto) (0-0.5) Absolute Lymphs (auto) (1.0-4.6) Absolute Monos (auto) (0.0-1.3) Lymphocytes % (24.0-44.0) % Monocytes % (0.0-12.0) % Eosinophils % (0.00-5.0) % Basophils % (0.0-0.4) % Absolute Granulocytes (1.4-6.9) Basophils # (0-0.4) Ionized Calcium (1.12-1.32) mmol/L Sodium (137-145) mmol/L Potassium (3.5-5.1) mmol/L Chloride (98-107) mmol/L Carbon Dioxide (22-30) mmol/L Anion Gap (5-15) MEQ/L BUN (7-17) mg/dL Creatinine (0.52-1.04) mg/dL Estimated GFR ML/MIN Glucose (74-106) mg/dL Lactic Acid 1.0 (0.4-2.0) Calcium (8.4-10.2) mg/dL Magnesium 1.8 (1.6-2.3) mg/dL Total Bilirubin (0.2-1.3) mg/dL AST (14-36) U/L ALT (0-35) U/L Alkaline Phosphatase (38-126) U/L Creatine Kinase (30-135) U/L Troponin I (0.000-0.034) ng/mL NT-Pro-B Natriuret Pep (0-900) pg/mL Serum Total Protein (6.3-8.2) g/dL Albumin (3.5-5.0) g/dL PTH Intact (15-72) pg/mL Urine Color (YELLOW) Urine Appearance (CLEAR) Urine pH (5-6) Ur Specific [place] (1.005-1.025) Urine Protein (Negative) Urine Ketones (NEGATIVE) Urine Blood (0-5) Ian/ul Urine Nitrite (NEGATIVE) Urine Bilirubin (NEGATIVE) Urine Urobilinogen (0-1) mg/dL Ur Leukocyte Esterase (NEGATIVE) Urine WBC (Auto) (0-5) /HPF Urine RBC (Auto) (0-2) /HPF U Hyaline Cast (Auto) (0-2) /LPF U Epithel Cells (Auto) (FEW) /HPF Urine Bacteria (Auto) (NEGATIVE) /HPF Urine Mucus (Auto) (NEGATIVE) /HPF Urine Culture Reflexed (NO) Urine Glucose (NEGATIVE) mg/dL Stool Occult Bld Scrn NEGATIVE (NEGATIVE) ABO Group Rh Factor Antibody Screen (NEGATIVE) Crossmatch (COMPATIBLE) 10/20/19 10/20/19 10/20/19 Range/Units 17:15 20:24 23:38 WBC (4.0-10.5) K/mm3 RBC (4.1-5.4) M/mm3 Hgb (12.0-16.0) gm/dl Hct (35-47) % MCV (78-100) fl MCH (26-32) pg MCHC (32-36) g/dl RDW (11.5-14.0) % Plt Count (150-450) K/mm3 MPV (7.5-11.0) fl Gran % (36.0-66.0) % Eos # (Auto) (0-0.5) Absolute Lymphs (auto) (1.0-4.6) Absolute Monos (auto) (0.0-1.3) Lymphocytes % (24.0-44.0) % Monocytes % (0.0-12.0) % Eosinophils % (0.00-5.0) % Basophils % (0.0-0.4) % Absolute Granulocytes (1.4-6.9) Basophils # (0-0.4) Ionized Calcium (1.12-1.32) mmol/L Sodium (137-145) mmol/L Potassium (3.5-5.1) mmol/L Chloride (98-107) mmol/L Carbon Dioxide (22-30) mmol/L Anion Gap (5-15) MEQ/L BUN (7-17) mg/dL Creatinine (0.52-1.04) mg/dL Estimated GFR ML/MIN Glucose (74-106) mg/dL Lactic Acid (0.4-2.0) Calcium (8.4-10.2) mg/dL Magnesium (1.6-2.3) mg/dL Total Bilirubin (0.2-1.3) mg/dL AST (14-36) U/L ALT (0-35) U/L Alkaline Phosphatase (38-126) U/L Creatine Kinase (30-135) U/L Troponin I 0.015 0.014 0.014 (0.000-0.034) ng/mL NT-Pro-B Natriuret Pep (0-900) pg/mL Serum Total Protein (6.3-8.2) g/dL Albumin (3.5-5.0) g/dL PTH Intact (15-72) pg/mL Urine Color (YELLOW) Urine Appearance (CLEAR) Urine pH (5-6) Ur Specific [place] (1.005-1.025) Urine Protein (Negative) Urine Ketones (NEGATIVE) Urine Blood (0-5) Ian/ul Urine Nitrite (NEGATIVE) Urine Bilirubin (NEGATIVE) Urine Urobilinogen (0-1) mg/dL Ur Leukocyte Esterase (NEGATIVE) Urine WBC (Auto) (0-5) /HPF Urine RBC (Auto) (0-2) /HPF U Hyaline Cast (Auto) (0-2) /LPF U Epithel Cells (Auto) (FEW) /HPF Urine Bacteria (Auto) (NEGATIVE) /HPF Urine Mucus (Auto) (NEGATIVE) /HPF Urine Culture Reflexed (NO) Urine Glucose (NEGATIVE) mg/dL Stool Occult Bld Scrn (NEGATIVE) ABO Group Rh Factor Antibody Screen (NEGATIVE) Crossmatch (COMPATIBLE) 10/21/19 10/21/19 10/21/19 Range/Units 04:20 04:20 05:33 WBC 6.8 (4.0-10.5) K/mm3 RBC 2.30 L (4.1-5.4) M/mm3 Hgb 6.5 L* (12.0-16.0) gm/dl Hct 22.0 L (35-47) % MCV 95.7 (78-100) fl MCH 28.3 (26-32) pg MCHC 29.5 L (32-36) g/dl RDW 17.0 H (11.5-14.0) % Plt Count 342 (150-450) K/mm3 MPV 9.0 (7.5-11.0) fl Gran % 74.5 H (36.0-66.0) % Eos # (Auto) 0.02 (0-0.5) Absolute Lymphs (auto) 1.24 (1.0-4.6) Absolute Monos (auto) 0.48 (0.0-1.3) Lymphocytes % 18.1 L (24.0-44.0) % Monocytes % 7.0 (0.0-12.0) % Eosinophils % 0.3 (0.00-5.0) % Basophils % 0.1 (0.0-0.4) % Absolute Granulocytes 5.09 (1.4-6.9) Basophils # 0.01 (0-0.4) Ionized Calcium (1.12-1.32) mmol/L Sodium 135 L (137-145) mmol/L Potassium 3.3 L (3.5-5.1) mmol/L Chloride 98 (98-107) mmol/L Carbon Dioxide 33 H (22-30) mmol/L Anion Gap 8.0 (5-15) MEQ/L BUN 46 H (7-17) mg/dL Creatinine 1.58 H (0.52-1.04) mg/dL Estimated GFR 35.6 ML/MIN Glucose 110 H (74-106) mg/dL Lactic Acid (0.4-2.0) Calcium 11.6 H D (8.4-10.2) mg/dL Magnesium (1.6-2.3) mg/dL Total Bilirubin 0.50 (0.2-1.3) mg/dL AST 98 H (14-36) U/L ALT 36 H (0-35) U/L Alkaline Phosphatase 234 H (38-126) U/L Creatine Kinase (30-135) U/L Troponin I (0.000-0.034) ng/mL NT-Pro-B Natriuret Pep (0-900) pg/mL Serum Total Protein 6.3 (6.3-8.2) g/dL Albumin 2.7 L (3.5-5.0) g/dL PTH Intact (15-72) pg/mL Urine Color (YELLOW) Urine Appearance (CLEAR) Urine pH (5-6) Ur Specific [place] (1.005-1.025) Urine Protein (Negative) Urine Ketones (NEGATIVE) Urine Blood (0-5) Ian/ul Urine Nitrite (NEGATIVE) Urine Bilirubin (NEGATIVE) Urine Urobilinogen (0-1) mg/dL Ur Leukocyte Esterase (NEGATIVE) Urine WBC (Auto) (0-5) /HPF Urine RBC (Auto) (0-2) /HPF U Hyaline Cast (Auto) (0-2) /LPF U Epithel Cells (Auto) (FEW) /HPF Urine Bacteria (Auto) (NEGATIVE) /HPF Urine Mucus (Auto) (NEGATIVE) /HPF Urine Culture Reflexed (NO) Urine Glucose (NEGATIVE) mg/dL Stool Occult Bld Scrn (NEGATIVE) ABO Group Rh Factor Antibody Screen (NEGATIVE) Crossmatch COMPATIBLE (COMPATIBLE) 10/21/19 10/21/19 Range/Units 05:33 05:33 WBC (4.0-10.5) K/mm3 RBC (4.1-5.4) M/mm3 Hgb (12.0-16.0) gm/dl Hct (35-47) % MCV (78-100) fl MCH (26-32) pg MCHC (32-36) g/dl RDW (11.5-14.0) % Plt Count (150-450) K/mm3 MPV (7.5-11.0) fl Gran % (36.0-66.0) % Eos # (Auto) (0-0.5) Absolute Lymphs (auto) (1.0-4.6) Absolute Monos (auto) (0.0-1.3) Lymphocytes % (24.0-44.0) % Monocytes % (0.0-12.0) % Eosinophils % (0.00-5.0) % Basophils % (0.0-0.4) % Absolute Granulocytes (1.4-6.9) Basophils # (0-0.4) Ionized Calcium (1.12-1.32) mmol/L Sodium (137-145) mmol/L Potassium (3.5-5.1) mmol/L Chloride (98-107) mmol/L Carbon Dioxide (22-30) mmol/L Anion Gap (5-15) MEQ/L BUN (7-17) mg/dL Creatinine (0.52-1.04) mg/dL Estimated GFR ML/MIN Glucose (74-106) mg/dL Lactic Acid (0.4-2.0) Calcium (8.4-10.2) mg/dL Magnesium (1.6-2.3) mg/dL Total Bilirubin (0.2-1.3) mg/dL AST (14-36) U/L ALT (0-35) U/L Alkaline Phosphatase (38-126) U/L Creatine Kinase (30-135) U/L Troponin I (0.000-0.034) ng/mL NT-Pro-B Natriuret Pep (0-900) pg/mL Serum Total Protein (6.3-8.2) g/dL Albumin (3.5-5.0) g/dL PTH Intact (15-72) pg/mL Urine Color (YELLOW) Urine Appearance (CLEAR) Urine pH (5-6) Ur Specific [place] (1.005-1.025) Urine Protein (Negative) Urine Ketones (NEGATIVE) Urine Blood (0-5) Ian/ul Urine Nitrite (NEGATIVE) Urine Bilirubin (NEGATIVE) Urine Urobilinogen (0-1) mg/dL Ur Leukocyte Esterase (NEGATIVE) Urine WBC (Auto) (0-5) /HPF Urine RBC (Auto) (0-2) /HPF U Hyaline Cast (Auto) (0-2) /LPF U Epithel Cells (Auto) (FEW) /HPF Urine Bacteria (Auto) (NEGATIVE) /HPF Urine Mucus (Auto) (NEGATIVE) /HPF Urine Culture Reflexed (NO) Urine Glucose (NEGATIVE) mg/dL Stool Occult Bld Scrn (NEGATIVE) ABO Group A Rh Factor POSITIVE Antibody Screen NEGATIVE (NEGATIVE) Crossmatch COMPATIBLE (COMPATIBLE) - Radiology Impressions Radiology Exams & Impressions: Radiology Procedures Category Date Time Status CHEST 1 VIEW (PORTABLE) Stat Exams 10/20/19 12:49 Completed PELVIS (1 OR 2 VIEWS) Routine Exams 10/20/19 12:56 Completed - Other Procedures and Tests Respiratory Therapy 10/21/19 08:52 Oxygen NASAL CANNULA 2 lpm Assessment/Plan (1) Anemia Current Visit: Yes Status: Acute Assessment & Plan: giving 2 units packed red cells, left voicemail for Dov her son and POA regarding recommendation to consider hospice care to replace current home healthcare, spoke with and she will discuss with Dov and they will make a decision and call back to the floor. could be discharged following transfusion, encourage Joseline to use her walker at home, she has one but states she is not using it regularly. Code(s): D64.9 - ANEMIA, UNSPECIFIED (2) Metastatic breast cancer Current Visit: Yes Status: Acute Code(s): C50.919 - MALIGNANT NEOPLASM OF UNSP SITE OF UNSPECIFIED FEMALE BREAST (3) Falls frequently Current Visit: Yes Status: Acute Code(s): R29.6 - REPEATED FALLS (4) Hypercalcemia Current Visit: Yes Status: Acute Assessment & Plan: secondary to her bone mets Code(s): E83.52 - HYPERCALCEMIA Hospital Summary - Vitals & Intake/Output Vital Signs: Vital Signs Temperature 99.2 F 10/21/19 07:14 Pulse Rate 104 H 10/21/19 07:14 Respiratory Rate 24 10/21/19 07:14 Blood Pressure 105/55 10/21/19 07:14 O2 Sat by Pulse Oximetry 98 10/21/19 08:52 Intake & Output: Intake & Output 10/18/19 10/19/19 10/20/19 10/21/19 11:59 11:59 11:59 11:59 Intake Total 1954 Output Total 900 Balance 1054 Weight 81.5 kg - Lab Result Diagrams: 10/21/19 04:20 10/21/19 04:20 Lab Results-Last 24 Hrs: Lab Results-Last 24 Hours 10/20/19 10/20/19 10/20/19 Range/Units 12:48 12:48 12:48 WBC 8.3 (4.0-10.5) K/mm3 RBC 2.67 L (4.1-5.4) M/mm3 Hgb 7.5 L (12.0-16.0) gm/dl Hct 25.1 L (35-47) % MCV 94.0 (78-100) fl MCH 28.1 (26-32) pg MCHC 29.9 L (32-36) g/dl RDW 16.4 H (11.5-14.0) % Plt Count 400 (150-450) K/mm3 MPV 9.2 (7.5-11.0) fl Gran % 71.4 H (36.0-66.0) % Eos # (Auto) 0.02 (0-0.5) Absolute Lymphs (auto) 1.68 (1.0-4.6) Absolute Monos (auto) 0.68 (0.0-1.3) Lymphocytes % 20.1 L (24.0-44.0) % Monocytes % 8.2 (0.0-12.0) % Eosinophils % 0.2 (0.00-5.0) % Basophils % 0.1 (0.0-0.4) % Absolute Granulocytes 5.95 (1.4-6.9) Basophils # 0.01 (0-0.4) Ionized Calcium (1.12-1.32) mmol/L Sodium 135 L (137-145) mmol/L Potassium 3.4 L (3.5-5.1) mmol/L Chloride 91 L (98-107) mmol/L Carbon Dioxide 37 H (22-30) mmol/L Anion Gap 10.8 (5-15) MEQ/L BUN 54 H (7-17) mg/dL Creatinine 2.06 H (0.52-1.04) mg/dL Estimated GFR 26.2 ML/MIN Glucose 136 H (74-106) mg/dL Lactic Acid (0.4-2.0) Calcium 14.2 H* (8.4-10.2) mg/dL Magnesium (1.6-2.3) mg/dL Total Bilirubin 0.60 (0.2-1.3) mg/dL AST 94 H (14-36) U/L ALT 38 H (0-35) U/L Alkaline Phosphatase 307 H (38-126) U/L Creatine Kinase 425 H (30-135) U/L Troponin I (0.000-0.034) ng/mL NT-Pro-B Natriuret Pep (0-900) pg/mL Serum Total Protein 7.9 (6.3-8.2) g/dL Albumin 3.5 (3.5-5.0) g/dL PTH Intact (15-72) pg/mL Urine Color (YELLOW) Urine Appearance (CLEAR) Urine pH (5-6) Ur Specific [place] (1.005-1.025) Urine Protein (Negative) Urine Ketones (NEGATIVE) Urine Blood (0-5) Ian/ul Urine Nitrite (NEGATIVE) Urine Bilirubin (NEGATIVE) Urine Urobilinogen (0-1) mg/dL Ur Leukocyte Esterase (NEGATIVE) Urine WBC (Auto) (0-5) /HPF Urine RBC (Auto) (0-2) /HPF U Hyaline Cast (Auto) (0-2) /LPF U Epithel Cells (Auto) (FEW) /HPF Urine Bacteria (Auto) (NEGATIVE) /HPF Urine Mucus (Auto) (NEGATIVE) /HPF Urine Culture Reflexed (NO) Urine Glucose (NEGATIVE) mg/dL Stool Occult Bld Scrn (NEGATIVE) ABO Group Rh Factor Antibody Screen (NEGATIVE) Crossmatch (COMPATIBLE) 10/20/19 10/20/19 10/20/19 Range/Units 13:12 14:00 14:13 WBC (4.0-10.5) K/mm3 RBC (4.1-5.4) M/mm3 Hgb (12.0-16.0) gm/dl Hct (35-47) % MCV (78-100) fl MCH (26-32) pg MCHC (32-36) g/dl RDW (11.5-14.0) % Plt Count (150-450) K/mm3 MPV (7.5-11.0) fl Gran % (36.0-66.0) % Eos # (Auto) (0-0.5) Absolute Lymphs (auto) (1.0-4.6) Absolute Monos (auto) (0.0-1.3) Lymphocytes % (24.0-44.0) % Monocytes % (0.0-12.0) % Eosinophils % (0.00-5.0) % Basophils % (0.0-0.4) % Absolute Granulocytes (1.4-6.9) Basophils # (0-0.4) Ionized Calcium 1.98 H* (1.12-1.32) mmol/L Sodium (137-145) mmol/L Potassium (3.5-5.1) mmol/L Chloride (98-107) mmol/L Carbon Dioxide (22-30) mmol/L Anion Gap (5-15) MEQ/L BUN (7-17) mg/dL Creatinine (0.52-1.04) mg/dL Estimated GFR ML/MIN Glucose (74-106) mg/dL Lactic Acid 2.2 H (0.4-2.0) Calcium (8.4-10.2) mg/dL Magnesium (1.6-2.3) mg/dL Total Bilirubin (0.2-1.3) mg/dL AST (14-36) U/L ALT (0-35) U/L Alkaline Phosphatase (38-126) U/L Creatine Kinase (30-135) U/L Troponin I (0.000-0.034) ng/mL NT-Pro-B Natriuret Pep (0-900) pg/mL Serum Total Protein (6.3-8.2) g/dL Albumin (3.5-5.0) g/dL PTH Intact (15-72) pg/mL Urine Color YELLOW (YELLOW) Urine Appearance CLOUDY (CLEAR) Urine pH 5.0 (5-6) Ur Specific [place] 1.021 (1.005-1.025) Urine Protein 30 (Negative) Urine Ketones NEGATIVE (NEGATIVE) Urine Blood LARGE (0-5) Ian/ul Urine Nitrite NEGATIVE (NEGATIVE) Urine Bilirubin NEGATIVE (NEGATIVE) Urine Urobilinogen NEGATIVE (0-1) mg/dL Ur Leukocyte Esterase TRACE (NEGATIVE) Urine WBC (Auto) 11-15 (0-5) /HPF Urine RBC (Auto) 3-5 (0-2) /HPF U Hyaline Cast (Auto) 6-10 (0-2) /LPF U Epithel Cells (Auto) NONE (FEW) /HPF Urine Bacteria (Auto) FEW (NEGATIVE) /HPF Urine Mucus (Auto) SLIGHT (NEGATIVE) /HPF Urine Culture Reflexed YES (NO) Urine Glucose NEGATIVE (NEGATIVE) mg/dL Stool Occult Bld Scrn (NEGATIVE) ABO Group Rh Factor Antibody Screen (NEGATIVE) Crossmatch (COMPATIBLE) 10/20/19 10/20/19 10/20/19 Range/Units 14:29 14:29 14:29 WBC (4.0-10.5) K/mm3 RBC (4.1-5.4) M/mm3 Hgb (12.0-16.0) gm/dl Hct (35-47) % MCV (78-100) fl MCH (26-32) pg MCHC (32-36) g/dl RDW (11.5-14.0) % Plt Count (150-450) K/mm3 MPV (7.5-11.0) fl Gran % (36.0-66.0) % Eos # (Auto) (0-0.5) Absolute Lymphs (auto) (1.0-4.6) Absolute Monos (auto) (0.0-1.3) Lymphocytes % (24.0-44.0) % Monocytes % (0.0-12.0) % Eosinophils % (0.00-5.0) % Basophils % (0.0-0.4) % Absolute Granulocytes (1.4-6.9) Basophils # (0-0.4) Ionized Calcium (1.12-1.32) mmol/L Sodium (137-145) mmol/L Potassium (3.5-5.1) mmol/L Chloride (98-107) mmol/L Carbon Dioxide (22-30) mmol/L Anion Gap (5-15) MEQ/L BUN (7-17) mg/dL Creatinine (0.52-1.04) mg/dL Estimated GFR ML/MIN Glucose (74-106) mg/dL Lactic Acid (0.4-2.0) Calcium (8.4-10.2) mg/dL Magnesium (1.6-2.3) mg/dL Total Bilirubin (0.2-1.3) mg/dL AST (14-36) U/L ALT (0-35) U/L Alkaline Phosphatase (38-126) U/L Creatine Kinase (30-135) U/L Troponin I < 0.012 (0.000-0.034) ng/mL NT-Pro-B Natriuret Pep 1930 H (0-900) pg/mL Serum Total Protein (6.3-8.2) g/dL Albumin (3.5-5.0) g/dL PTH Intact 6 L (15-72) pg/mL Urine Color (YELLOW) Urine Appearance (CLEAR) Urine pH (5-6) Ur Specific [place] (1.005-1.025) Urine Protein (Negative) Urine Ketones (NEGATIVE) Urine Blood (0-5) Ian/ul Urine Nitrite (NEGATIVE) Urine Bilirubin (NEGATIVE) Urine Urobilinogen (0-1) mg/dL Ur Leukocyte Esterase (NEGATIVE) Urine WBC (Auto) (0-5) /HPF Urine RBC (Auto) (0-2) /HPF U Hyaline Cast (Auto) (0-2) /LPF U Epithel Cells (Auto) (FEW) /HPF Urine Bacteria (Auto) (NEGATIVE) /HPF Urine Mucus (Auto) (NEGATIVE) /HPF Urine Culture Reflexed (NO) Urine Glucose (NEGATIVE) mg/dL Stool Occult Bld Scrn (NEGATIVE) ABO Group Rh Factor Antibody Screen (NEGATIVE) Crossmatch (COMPATIBLE) 10/20/19 10/20/19 10/20/19 Range/Units 14:45 15:15 16:35 WBC (4.0-10.5) K/mm3 RBC (4.1-5.4) M/mm3 Hgb (12.0-16.0) gm/dl Hct (35-47) % MCV (78-100) fl MCH (26-32) pg MCHC (32-36) g/dl RDW (11.5-14.0) % Plt Count (150-450) K/mm3 MPV (7.5-11.0) fl Gran % (36.0-66.0) % Eos # (Auto) (0-0.5) Absolute Lymphs (auto) (1.0-4.6) Absolute Monos (auto) (0.0-1.3) Lymphocytes % (24.0-44.0) % Monocytes % (0.0-12.0) % Eosinophils % (0.00-5.0) % Basophils % (0.0-0.4) % Absolute Granulocytes (1.4-6.9) Basophils # (0-0.4) Ionized Calcium (1.12-1.32) mmol/L Sodium (137-145) mmol/L Potassium (3.5-5.1) mmol/L Chloride (98-107) mmol/L Carbon Dioxide (22-30) mmol/L Anion Gap (5-15) MEQ/L BUN (7-17) mg/dL Creatinine (0.52-1.04) mg/dL Estimated GFR ML/MIN Glucose (74-106) mg/dL Lactic Acid 1.0 (0.4-2.0) Calcium (8.4-10.2) mg/dL Magnesium 1.8 (1.6-2.3) mg/dL Total Bilirubin (0.2-1.3) mg/dL AST (14-36) U/L ALT (0-35) U/L Alkaline Phosphatase (38-126) U/L Creatine Kinase (30-135) U/L Troponin I (0.000-0.034) ng/mL NT-Pro-B Natriuret Pep (0-900) pg/mL Serum Total Protein (6.3-8.2) g/dL Albumin (3.5-5.0) g/dL PTH Intact (15-72) pg/mL Urine Color (YELLOW) Urine Appearance (CLEAR) Urine pH (5-6) Ur Specific [place] (1.005-1.025) Urine Protein (Negative) Urine Ketones (NEGATIVE) Urine Blood (0-5) Ian/ul Urine Nitrite (NEGATIVE) Urine Bilirubin (NEGATIVE) Urine Urobilinogen (0-1) mg/dL Ur Leukocyte Esterase (NEGATIVE) Urine WBC (Auto) (0-5) /HPF Urine RBC (Auto) (0-2) /HPF U Hyaline Cast (Auto) (0-2) /LPF U Epithel Cells (Auto) (FEW) /HPF Urine Bacteria (Auto) (NEGATIVE) /HPF Urine Mucus (Auto) (NEGATIVE) /HPF Urine Culture Reflexed (NO) Urine Glucose (NEGATIVE) mg/dL Stool Occult Bld Scrn NEGATIVE (NEGATIVE) ABO Group Rh Factor Antibody Screen (NEGATIVE) Crossmatch (COMPATIBLE) 10/20/19 10/20/19 10/20/19 Range/Units 17:15 20:24 23:38 WBC (4.0-10.5) K/mm3 RBC (4.1-5.4) M/mm3 Hgb (12.0-16.0) gm/dl Hct (35-47) % MCV (78-100) fl MCH (26-32) pg MCHC (32-36) g/dl RDW (11.5-14.0) % Plt Count (150-450) K/mm3 MPV (7.5-11.0) fl Gran % (36.0-66.0) % Eos # (Auto) (0-0.5) Absolute Lymphs (auto) (1.0-4.6) Absolute Monos (auto) (0.0-1.3) Lymphocytes % (24.0-44.0) % Monocytes % (0.0-12.0) % Eosinophils % (0.00-5.0) % Basophils % (0.0-0.4) % Absolute Granulocytes (1.4-6.9) Basophils # (0-0.4) Ionized Calcium (1.12-1.32) mmol/L Sodium (137-145) mmol/L Potassium (3.5-5.1) mmol/L Chloride (98-107) mmol/L Carbon Dioxide (22-30) mmol/L Anion Gap (5-15) MEQ/L BUN (7-17) mg/dL Creatinine (0.52-1.04) mg/dL Estimated GFR ML/MIN Glucose (74-106) mg/dL Lactic Acid (0.4-2.0) Calcium (8.4-10.2) mg/dL Magnesium (1.6-2.3) mg/dL Total Bilirubin (0.2-1.3) mg/dL AST (14-36) U/L ALT (0-35) U/L Alkaline Phosphatase (38-126) U/L Creatine Kinase (30-135) U/L Troponin I 0.015 0.014 0.014 (0.000-0.034) ng/mL NT-Pro-B Natriuret Pep (0-900) pg/mL Serum Total Protein (6.3-8.2) g/dL Albumin (3.5-5.0) g/dL PTH Intact (15-72) pg/mL Urine Color (YELLOW) Urine Appearance (CLEAR) Urine pH (5-6) Ur Specific [place] (1.005-1.025) Urine Protein (Negative) Urine Ketones (NEGATIVE) Urine Blood (0-5) Ian/ul Urine Nitrite (NEGATIVE) Urine Bilirubin (NEGATIVE) Urine Urobilinogen (0-1) mg/dL Ur Leukocyte Esterase (NEGATIVE) Urine WBC (Auto) (0-5) /HPF Urine RBC (Auto) (0-2) /HPF U Hyaline Cast (Auto) (0-2) /LPF U Epithel Cells (Auto) (FEW) /HPF Urine Bacteria (Auto) (NEGATIVE) /HPF Urine Mucus (Auto) (NEGATIVE) /HPF Urine Culture Reflexed (NO) Urine Glucose (NEGATIVE) mg/dL Stool Occult Bld Scrn (NEGATIVE) ABO Group Rh Factor Antibody Screen (NEGATIVE) Crossmatch (COMPATIBLE) 10/21/19 10/21/19 10/21/19 Range/Units 04:20 04:20 05:33 WBC 6.8 (4.0-10.5) K/mm3 RBC 2.30 L (4.1-5.4) M/mm3 Hgb 6.5 L* (12.0-16.0) gm/dl Hct 22.0 L (35-47) % MCV 95.7 (78-100) fl MCH 28.3 (26-32) pg MCHC 29.5 L (32-36) g/dl RDW 17.0 H (11.5-14.0) % Plt Count 342 (150-450) K/mm3 MPV 9.0 (7.5-11.0) fl Gran % 74.5 H (36.0-66.0) % Eos # (Auto) 0.02 (0-0.5) Absolute Lymphs (auto) 1.24 (1.0-4.6) Absolute Monos (auto) 0.48 (0.0-1.3) Lymphocytes % 18.1 L (24.0-44.0) % Monocytes % 7.0 (0.0-12.0) % Eosinophils % 0.3 (0.00-5.0) % Basophils % 0.1 (0.0-0.4) % Absolute Granulocytes 5.09 (1.4-6.9) Basophils # 0.01 (0-0.4) Ionized Calcium (1.12-1.32) mmol/L Sodium 135 L (137-145) mmol/L Potassium 3.3 L (3.5-5.1) mmol/L Chloride 98 (98-107) mmol/L Carbon Dioxide 33 H (22-30) mmol/L Anion Gap 8.0 (5-15) MEQ/L BUN 46 H (7-17) mg/dL Creatinine 1.58 H (0.52-1.04) mg/dL Estimated GFR 35.6 ML/MIN Glucose 110 H (74-106) mg/dL Lactic Acid (0.4-2.0) Calcium 11.6 H D (8.4-10.2) mg/dL Magnesium (1.6-2.3) mg/dL Total Bilirubin 0.50 (0.2-1.3) mg/dL AST 98 H (14-36) U/L ALT 36 H (0-35) U/L Alkaline Phosphatase 234 H (38-126) U/L Creatine Kinase (30-135) U/L Troponin I (0.000-0.034) ng/mL NT-Pro-B Natriuret Pep (0-900) pg/mL Serum Total Protein 6.3 (6.3-8.2) g/dL Albumin 2.7 L (3.5-5.0) g/dL PTH Intact (15-72) pg/mL Urine Color (YELLOW) Urine Appearance (CLEAR) Urine pH (5-6) Ur Specific [place] (1.005-1.025) Urine Protein (Negative) Urine Ketones (NEGATIVE) Urine Blood (0-5) Ian/ul Urine Nitrite (NEGATIVE) Urine Bilirubin (NEGATIVE) Urine Urobilinogen (0-1) mg/dL Ur Leukocyte Esterase (NEGATIVE) Urine WBC (Auto) (0-5) /HPF Urine RBC (Auto) (0-2) /HPF U Hyaline Cast (Auto) (0-2) /LPF U Epithel Cells (Auto) (FEW) /HPF Urine Bacteria (Auto) (NEGATIVE) /HPF Urine Mucus (Auto) (NEGATIVE) /HPF Urine Culture Reflexed (NO) Urine Glucose (NEGATIVE) mg/dL Stool Occult Bld Scrn (NEGATIVE) ABO Group Rh Factor Antibody Screen (NEGATIVE) Crossmatch COMPATIBLE (COMPATIBLE) 10/21/19 10/21/19 Range/Units 05:33 05:33 WBC (4.0-10.5) K/mm3 RBC (4.1-5.4) M/mm3 Hgb (12.0-16.0) gm/dl Hct (35-47) % MCV (78-100) fl MCH (26-32) pg MCHC (32-36) g/dl RDW (11.5-14.0) % Plt Count (150-450) K/mm3 MPV (7.5-11.0) fl Gran % (36.0-66.0) % Eos # (Auto) (0-0.5) Absolute Lymphs (auto) (1.0-4.6) Absolute Monos (auto) (0.0-1.3) Lymphocytes % (24.0-44.0) % Monocytes % (0.0-12.0) % Eosinophils % (0.00-5.0) % Basophils % (0.0-0.4) % Absolute Granulocytes (1.4-6.9) Basophils # (0-0.4) Ionized Calcium (1.12-1.32) mmol/L Sodium (137-145) mmol/L Potassium (3.5-5.1) mmol/L Chloride (98-107) mmol/L Carbon Dioxide (22-30) mmol/L Anion Gap (5-15) MEQ/L BUN (7-17) mg/dL Creatinine (0.52-1.04) mg/dL Estimated GFR ML/MIN Glucose (74-106) mg/dL Lactic Acid (0.4-2.0) Calcium (8.4-10.2) mg/dL Magnesium (1.6-2.3) mg/dL Total Bilirubin (0.2-1.3) mg/dL AST (14-36) U/L ALT (0-35) U/L Alkaline Phosphatase (38-126) U/L Creatine Kinase (30-135) U/L Troponin I (0.000-0.034) ng/mL NT-Pro-B Natriuret Pep (0-900) pg/mL Serum Total Protein (6.3-8.2) g/dL Albumin (3.5-5.0) g/dL PTH Intact (15-72) pg/mL Urine Color (YELLOW) Urine Appearance (CLEAR) Urine pH (5-6) Ur Specific [place] (1.005-1.025) Urine Protein (Negative) Urine Ketones (NEGATIVE) Urine Blood (0-5) Ian/ul Urine Nitrite (NEGATIVE) Urine Bilirubin (NEGATIVE) Urine Urobilinogen (0-1) mg/dL Ur Leukocyte Esterase (NEGATIVE) Urine WBC (Auto) (0-5) /HPF Urine RBC (Auto) (0-2) /HPF U Hyaline Cast (Auto) (0-2) /LPF U Epithel Cells (Auto) (FEW) /HPF Urine Bacteria (Auto) (NEGATIVE) /HPF Urine Mucus (Auto) (NEGATIVE) /HPF Urine Culture Reflexed (NO) Urine Glucose (NEGATIVE) mg/dL Stool Occult Bld Scrn (NEGATIVE) ABO Group A Rh Factor POSITIVE Antibody Screen NEGATIVE (NEGATIVE) Crossmatch COMPATIBLE (COMPATIBLE) - Radiology Exams Ordered Rad Exams-Entire Visit: Radiology Procedures Category Date Time Status CHEST 1 VIEW (PORTABLE) Stat Exams 10/20/19 12:49 Completed PELVIS (1 OR 2 VIEWS) Routine Exams 10/20/19 12:56 Completed - Procedures and Test Procedures and Tests throughout Hospitalization: Therapy Orders & Screens 10/21/19 08:52 Oxygen NASAL CANNULA 2 lpm Comment: Diagnosis: SEPSIS - Discharge Disposition: Home, Self-Care Condition: Critical Prescriptions: Continue Metoprolol Succinate 50 mg PO DAILY Amlodipine Besylate 5 mg PO DAILY Hydrochlorothiazide 25 mg PO DAILY Pravastatin Sodium 20 mg PO DAILY Fluoxetine HCl 10 mg PO DAILY Cyanocobalamin (Vitamin B-12) [Vitamin B-12] 1,000 mcg PO DAILY ondansetron HCL [Ondansetron HCl] 4 mg PO TIDPRN PRN PRN Reason: Nausea Anastrozole 1 mg PO DAILY Discontinued Calcium Carbonate/Vitamin D3 [Calcium 600-Vit D3 800 Tablet] 1 each PO DAILY Follow up with: DUSTIN BRUNSON MD [Primary Care Provider] - 1 Week
[2019-10-21] MEDS ORDERED: NORCO 5/325 MG PO PRN (09:24)
[2019-10-21] MEDS ORDERED: NON-FORMULARY ITEM (Pravastatin Sodium [Pravastatin Sodium] 20 MG) PO SCH (10:00)
[2019-10-21] MEDS ORDERED: NON-FORMULARY ITEM (Fluoxetine Hcl [Fluoxetine Hcl] 10 mg) PO SCH (10:00)
[2019-10-21] MEDS ORDERED: ZOCOR 20MG PO SCH (10:00)
[2019-10-21] MEDS ORDERED: NORVASC 5 MG PO SCH (10:00)
[2019-10-21] MEDS ORDERED: Toprol Xl 50 MG PO SCH (10:00)
[2019-10-21] MEDS ORDERED: hydroDIURIL 25 MG PO SCH (10:00)
[2019-10-21] MEDS ORDERED: NON-FORMULARY ITEM (Cyanocobalamin (Vitamin B-12) [Vitamin B-12] 1,000 MCG) PO SCH (10:00)
[2019-10-21] MEDS ORDERED: PROZAC 10 MG PO SCH (10:00)
[2019-10-21] MEDS ORDERED: Vitamin B-12 500 MCG PO SCH (10:00)
[2019-10-21] MEDS ORDERED: Toprol-Xl 25MG Tablets PO SCH (10:00)
[2019-10-21 18:39] LABS: Hematocrit 32.1 % (35-47)
[2019-10-21 18:42] LABS: Hemoglobin 9.9 gm/dl (12.0-16.0)
[2019-10-22] MEDS: Sodium Chloride 0.9% 1000 ML 1,000 ML IV SCH (02:12)
[2019-10-22 07:20] VITALS: BP 124/60; PULSE 83; O2SAT 96
== END 2019-10-22 08:55 | disposition home health service (06) ==
LOC: ED 12:17 → MED SURG 14:54
PROVIDERS: ADMIT Family Medicine; ATTEND Family Medicine
DX: D64.9 Anemia, unspecified (principal); C50.919 Malignant neoplasm of unspecified site of unspecified female breast; C78.00 Secondary malignant neoplasm of unspecified lung; C79.51 Secondary malignant neoplasm of bone; R53.1 Weakness; E83.52 Hypercalcemia; R29.6 Repeated falls; F20.9 Schizophrenia, unspecified
CPT/HCPCS: 36415; 36430; 51702; 72170; 80053; 81001; 82270; 82330; 82550; 83605; 83735; 83880; 83970; 84484; 85014; 85018; 85025; 86850; 86900; 86901; 86922; 87040; 87086; 93268; 94762; 96360; 96365; 99291; G0378; P9016; 71045; 99285; J3489; A9270-GY

== ENCOUNTER 2020-04-07 06:41 | Inpatient (IN) | payer MEDICARE ==
[2020-04-07] MEDS ORDERED: Sodium Chloride 0.9% 1000 ML 1,000 ML IV STA ×2 (07:26→09:39)
[2020-04-07] MEDS ORDERED: Sodium Chloride 0.9% 1000 ML 1,000 ML ONE ×2 (07:31→09:36)
--- NOTE | 2020-04-07 07:52 | ERPHSYRPT ---
- History of Present Illness Time Seen by Provider: 04/07/20 07:06 Source: patient, family, EMS Exam Limitations: no limitations Physician History: 60 years old female with history of metastatic breast cancer without chemoradiation/surgery, hypertension is brought in the ER with progressively worsening weakness all over for the last 3 weeks. Patient used to ambulate with a walker but currently she is unable to get out of her bed. Her legs are giving away, has mets in the spine/brain as well as at other places. She is unable to take care of herself. No fever or chills reported. Denies any chest pain palpitations or shortness of breath. No abdominal pain nausea or vomiting. Timing/Duration: week(s) (3), gradual onset, worse Severity: moderate Associated Symptoms: weakness Allergies/Adverse Reactions: No Known Drug Allergies Allergy (Verified 04/07/20 06:59) Home Medications: ondansetron HCL [Ondansetron HCl] 4 mg PO TIDPRN PRN 10/20/19 [History] Hydrocodone Bit/Acetaminophen [[place] 10-325 Tablet] 1 each PO Q4H PRN PRN 04/07/20 [History] Metoprolol Succinate 50 mg [Toprol Xl 50 MG] 50 mg PO DAILY 04/07/20 [Hist ory] Hx Tetanus, Diphtheria Vaccination/Date Given: No Hx Influenza Vaccination/Date Given: Yes Hx Pneumococcal Vaccination/Date Given: No - Review of Systems Constitutional: Fatigue, Weakness Eyes: Other (Inability to move her left eye laterally, superior and inferior.) Ears, Nose, & Throat: No Symptoms Respiratory: No Symptoms Cardiac: No Symptoms Abdominal/Gastrointestinal: No Symptoms Genitourinary Symptoms: No Symptoms Musculoskeletal: Back Pain Skin: Rash Neurological: No Symptoms Psychological: Depression Endocrine: No Symptoms Hematologic/Lymphatic: No Symptoms Immunological/Allergic: No Symptoms - Past Medical History Pertinent Past Medical History: Yes Neurological History: No Pertinent History ENT History: No Pertinent History Cardiac History: Hypertension Respiratory History: No Pertinent History Endocrine Medical History: No Pertinent History Musculoskeletal History: Bone Cancer GI Medical History: No Pertinent History History: No Pertinent History Psycho-Social History: No Pertinent History Female Reproductive Disorders: Breast Cancer Other Medical History: Pt denies any major health history except Left breast c ancer with mets to bone. Sister states " her last CT scan showed a possible mass in right lung." - Past Surgical History Past Surgical History: No Neuro Surgical History: No Pertinent History Cardiac: No Pertinent History Respiratory: No Pertinent History Gastrointestinal: No Pertinent History Genitourinary: No Pertinent History Musculoskeletal: No Pertinent History Female Surgical History: Other Other Surgical History: Hx of breast biopsy. No other surgeries. - Social History Smoking Status: Never smoker Exposure to second hand smoke: Yes (as a child) Drug Use: none Patient Lives Alone: No - Nursing Vital Signs Nursing Vital Signs: Initial Vital Signs Temperature 97.3 F 04/07/20 07:09 Pulse Rate 85 04/07/20 07:09 Respiratory Rate 16 04/07/20 07:09 Blood Pressure 96/59 04/07/20 07:09 O2 Sat by Pulse Oximetry 100 04/07/20 07:09 Pain Scale Pain Intensity 0 - Physical Exam General Appearance: no apparent distress, alert Eye Exam: other (Intact range of motion in right but limited in left lateral superior and inferior. Eyes deviated to medial) Ears, Nose, Throat Exam: normal ENT inspection, pharynx normal Neck Exam: normal inspection, non-tender, supple, full range of motion Respiratory Exam: normal breath sounds, lungs clear, other (Puckering of left b reast including involvement of the nipple which is inverted inward. Erythematous, hard left breast. Enlarged axillary nodes. Nontender.) Cardiovascular Exam: regular rate/rhythm, normal heart sounds Gastrointestinal/Abdomen Exam: soft, normal bowel sounds, No tenderness Pelvic Exam: not done Back Exam: normal inspection, vertebral tenderness, decreased range of motion, point tenderness Extremity Exam: normal inspection, pelvis stable, limited range of motion Neurologic Exam: alert, oriented x 3, cooperative, sensation nml, depressed mood/affect, abnormal gait, abnormal hand weaver II-XII, No hand weaver II-XII nml as tested, No nml station & gait Skin Exam: other (Pale) Lymphatic Exam: adenopathy SpO2 Interpretation: normal SpO2: 100 O2 Delivery: Room Air - Course Nursing assessment & vital signs reviewed: Yes EKG Interpreted by Me: RATE (80), Sinus Rhythm, NORMAL AXIS, NORMAL INTERVALS, Non-specific ST Changes Ordered Tests: Active Orders 24 hr Category Date Time Status Bedrest ROUTINE Activity 04/07/20 10:21 Active Admit as Inpatient ROUTINE Care 04/07/20 10:21 Active Code Status Order ROUTINE Care 04/07/20 10:21 Active Fall Protocol ROUTINE Care 04/07/20 10:21 Active IV Care Q6H Care 04/07/20 10:21 Active IV Insertion STAT Care 04/07/20 07:24 Completed Donnell Romero ROUTINE Care 04/07/20 10:21 Active Weight,Daily 0600 Care 04/07/20 10:21 Active House Regular Diet Diet 04/07/20 Lunch Active CHEST 1 VIEW (PORTABLE) Stat Exams 04/07/20 07:45 Completed BLOOD CULTURE Stat Lab 04/07/20 07:45 Received CBC W DIFF AM.LAB Lab 04/08/20 04:00 Ordered CBC W DIFF Stat Lab 04/07/20 07:25 Completed CMP AM.LAB Lab 04/08/20 04:00 Ordered CMP Stat Lab 04/07/20 07:25 Completed CULTURE,URINE Stat Lab 04/07/20 07:24 Received Lactic Acid Stat Lab 04/07/20 07:24 Completed Lactic Acid Stat Lab 04/07/20 09:48 Completed MAG [MAGNESIUM] Stat Lab 04/07/20 07:25 Completed UA W/RFX UR CULTURE Stat Lab 04/07/20 07:24 Completed Transfer Order Routine Transfer 04/07/20 Completed Medication Summary Generic Name Dose Route Start Last Admin Trade Name Freq PRN Reason Stop Dose Admin Acetaminophen 650 mg 04/07/20 10:21 Tylenol 325 Mg PO 05/07/20 10:20 Q4H PRN PRN PAIN AND/OR FEVER Enoxaparin Sodium 40 mg 04/07/20 10:21 04/07/20 10:47 Enoxaparin Sodium SQ 05/07/20 10:20 Not Given DAILY SUNIL Azithromycin 500 mg in 250 mls @ 250 mls/hr 04/07/20 10:21 04/07/20 10:58 Zithromax 500 Mg/ 250 Ml Nacl Premix IV 05/07/20 10:20 Not Given Q24H10 SUNIL Ceftriaxone Sodium/Dextrose 1 g in 50 mls @ 100 mls/hr 04/07/20 10:21 04/07/20 10:58 Rocephin 1 Gm-D5w 50 Ml Bag IV 05/07/20 10:20 Not Given Q24H10 SUNIL Sodium Chloride 1,000 mls @ 100 mls/hr 04/07/20 11:15 04/07/20 12:21 Sodium Chloride 0.9% 1000 Ml IV 05/07/20 11:14 100 mls/hr .Q10H SUNIL Administration Morphine Sulfate 2 mg 04/07/20 10:21 04/07/20 13:12 Morphine Sulfate 2 Mg Inj IV 04/12/20 10:20 2 mg Q4H PRN PRN Administration PAIN Ondansetron HCl 4 mg 04/07/20 10:21 Zofran 4 Mg/2 Ml Vial IV 05/07/20 10:20 Q6H PRN PRN NAUSEA/VOMITING Discontinued Medications Generic Name Dose Route Start Last Admin Trade Name Freq PRN Reason Stop Dose Admin Albuterol/Ipratropium 3 ml 04/07/20 10:21 Duoneb 0.5-3 Mg/3 Ml Neb IH 05/07/20 10:20 Q4HPRN PRN SHORTNESS OF BREATH/WHEEZING Sodium Chloride 1,000 mls @ 499 mls/hr 04/07/20 07:26 04/07/20 09:17 Sodium Chloride 0.9% 1000 Ml IV 04/07/20 09:26 Infused .Q2H1M STA Infusion Sodium Chloride Confirm 04/07/20 07:31 Sodium Chloride 0.9% 1000 Ml Administered 04/07/20 07:32 Dose 1,000 mls @ ud .ROUTE .STK-MED ONE Levofloxacin/Dextrose 500 mg in 100 mls @ 100 mls/hr 04/07/20 07:53 04/07/20 10:10 Levofloxacin 500mg/100ml D5w IV 04/07/20 08:52 Infused STAT STA Infusion Piperacillin Sod/Tazobactam 100 mls @ 200 mls/hr 04/07/20 07:53 04/07/20 08:01 Sod 3.375 gm/ Sodium Chloride IV 04/07/20 08:22 200 mls/hr STAT ONE Administration Levofloxacin/Dextrose Confirm 04/07/20 07:58 Levofloxacin 500mg/100ml D5w Administered 04/07/20 07:59 Dose 500 mg in 100 mls @ ud IV .STK-MED ONE Sodium Chloride Confirm 04/07/20 07:59 Sodium Chloride 0.9% 100 Ml Ivpb Administered 04/07/20 08:00 Dose 100 mls @ ud IV .STK-MED ONE Sodium Chloride Confirm 04/07/20 08:02 Sodium Chloride 100ml Mini-Bag Plus Administered 04/07/20 08:03 Dose 100 mls @ ud IV .STK-MED ONE Sodium Chloride Confirm 04/07/20 09:36 Sodium Chloride 0.9% 1000 Ml Administered 04/07/20 09:37 Dose 1,000 mls @ ud .ROUTE .STK-MED ONE Sodium Chloride 1,000 mls @ 999 mls/hr 04/07/20 09:39 04/07/20 09:40 Sodium Chloride 0.9% 1000 Ml IV 04/07/20 10:39 999 mls/hr .Q1H1M STA Administration Potassium Chloride/Sodium Chloride 1,000 mls @ 100 mls/hr 04/07/20 10:21 04/07/20 11:07 Sodium Chloride 0.9% W/ 20 Meq Kcl/Liter IV 05/07/20 10:20 Not Given .Q10H SUNIL Piperacillin Sod/Tazobactam Sod Confirm 04/07/20 07:58 Zosyn 3.375 Gm Vial Administered 04/07/20 07:59 Dose 3.375 gm IV .STK-MED ONE Lab/Rad Data: Laboratory Result Diagrams 04/07/20 07:25 04/07/20 07:25 Laboratory Results 04/07/20 04/07/20 04/07/20 Range/Units 09:48 07:25 07:25 WBC (4.0-10.5) K/mm3 RBC (4.1-5.4) M/mm3 Hgb (12.0-16.0) gm/dl Hct (35-47) % MCV (78-100) fl MCH (26-32) pg MCHC (32-36) g/dl RDW (11.5-14.0) % Plt Count (150-450) K/mm3 MPV (7.5-11.0) fl Gran % (36.0-66.0) % Eos # (Auto) (0-0.5) Absolute Lymphs (auto) (1.0-4.6) Absolute Monos (auto) (0.0-1.3) Lymphocytes % (24.0-44.0) % Monocytes % (0.0-12.0) % Eosinophils % (0.00-5.0) % Basophils % (0.0-0.4) % Absolute Granulocytes (1.4-6.9) Basophils # (0-0.4) Sodium 141 (137-145) mmol/L Potassium 3.5 (3.5-5.1) mmol/L Chloride 106 (98-107) mmol/L Carbon Dioxide 20 L (22-30) mmol/L Anion Gap 18.9 H (5-15) MEQ/L BUN 30 H (7-17) mg/dL Creatinine 3.58 H (0.52-1.04) mg/dL Estimated GFR 13.8 ML/MIN Glucose 89 (74-106) mg/dL Lactic Acid 2.5 H (0.4-2.0) Calcium 10.2 (8.4-10.2) mg/dL Magnesium 2.3 (1.6-2.3) mg/dL Total Bilirubin 0.80 (0.2-1.3) mg/dL AST 415 H (14-36) U/L ALT 49 H (0-35) U/L Alkaline Phosphatase 403 H (38-126) U/L Serum Total Protein 7.4 (6.3-8.2) g/dL Albumin 3.0 L (3.5-5.0) g/dL Urine Color (YELLOW) Urine Appearance (CLEAR) Urine pH (5-6) Ur Specific [place] (1.005-1.025) Urine Protein (Negative) Urine Ketones (NEGATIVE) Urine Blood (0-5) Ian/ul Urine Nitrite (NEGATIVE) Urine Bilirubin (NEGATIVE) Urine Urobilinogen (0-1) mg/dL Ur Leukocyte Esterase (NEGATIVE) Urine WBC (Auto) (0-5) /HPF Urine RBC (Auto) (0-2) /HPF U Hyaline Cast (Auto) (0-2) /LPF U Epithel Cells (Auto) (FEW) /HPF Urine Bacteria (Auto) (NEGATIVE) /HPF Urine Mucus (Auto) (NEGATIVE) /HPF Urine Culture Reflexed (NO) Urine Glucose (NEGATIVE) mg/dL Slides for Path Review 04/07/20 04/07/20 04/07/20 Range/Units 07:25 07:24 07:24 WBC 10.7 H (4.0-10.5) K/mm3 RBC 2.66 L (4.1-5.4) M/mm3 Hgb 8.4 L (12.0-16.0) gm/dl Hct 29.5 L (35-47) % MCV 110.9 H (78-100) fl MCH 31.6 (26-32) pg MCHC 28.5 L (32-36) g/dl RDW 16.8 H (11.5-14.0) % Plt Count 368 (150-450) K/mm3 MPV 9.1 (7.5-11.0) fl Gran % 74.6 H (36.0-66.0) % Eos # (Auto) 0.05 (0-0.5) Absolute Lymphs (auto) 1.98 (1.0-4.6) Absolute Monos (auto) 0.67 (0.0-1.3) Lymphocytes % 18.5 L (24.0-44.0) % Monocytes % 6.3 (0.0-12.0) % Eosinophils % 0.5 (0.00-5.0) % Basophils % 0.1 (0.0-0.4) % Absolute Granulocytes 8.01 H (1.4-6.9) Basophils # 0.01 (0-0.4) Sodium (137-145) mmol/L Potassium (3.5-5.1) mmol/L Chloride (98-107) mmol/L Carbon Dioxide (22-30) mmol/L Anion Gap (5-15) MEQ/L BUN (7-17) mg/dL Creatinine (0.52-1.04) mg/dL Estimated GFR ML/MIN Glucose (74-106) mg/dL Lactic Acid 3.7 H (0.4-2.0) Calcium (8.4-10.2) mg/dL Magnesium (1.6-2.3) mg/dL Total Bilirubin (0.2-1.3) mg/dL AST (14-36) U/L ALT (0-35) U/L Alkaline Phosphatase (38-126) U/L Serum Total Protein (6.3-8.2) g/dL Albumin (3.5-5.0) g/dL Urine Color STAR (YELLOW) Urine Appearance CLOUDY (CLEAR) Urine pH 5.0 (5-6) Ur Specific [place] 1.021 (1.005-1.025) Urine Protein 30 (Negative) Urine Ketones NEGATIVE (NEGATIVE) Urine Blood NEGATIVE (0-5) Ian/ul Urine Nitrite NEGATIVE (NEGATIVE) Urine Bilirubin NEGATIVE (NEGATIVE) Urine Urobilinogen NEGATIVE (0-1) mg/dL Ur Leukocyte Esterase TRACE (NEGATIVE) Urine WBC (Auto) 3-5 (0-5) /HPF Urine RBC (Auto) NONE (0-2) /HPF U Hyaline Cast (Auto) 11-25 (0-2) /LPF U Epithel Cells (Auto) NONE (FEW) /HPF Urine Bacteria (Auto) NONE (NEGATIVE) /HPF Urine Mucus (Auto) MODERATE (NEGATIVE) /HPF Urine Culture Reflexed YES (NO) Urine Glucose NEGATIVE (NEGATIVE) mg/dL Slides for Path Review YES - Progress Progress: unchanged, re-examined Progress Note: 04/07/20 08:57 60 years old with metastatic breast cancer is evaluated for worsening generalized weakness fatigue. She is is given a fluid bolus. She has taken [place] prior to arrival and is not complaining of any pain. She is not in any distress on presentation and oxygen saturation is well above 95% on room air. She has a white count of 10, hemoglobin of 8.5 which is around her baseline. She has acute renal failure with a creatinine of 3.5 with baseline around 1. She also has left lower lobe pneumonia and lactate of 3.7. She is given a dose of Zosyn and Levaquin in here. Since she has acute renal failure on work-up, will start her on Zithromax and Rocephin. She also has worsening of liver functions which I believe is secondary to her metastatic disease but patient does not have any abdominal pain/tenderness on exam. I have discussed with Dr. Saavedra and patient is being admitted. Discussed with : Richard Will see patient in: hospital (full admit) Counseled pt/family regarding: lab results, diagnosis, rad results - Departure Departure Disposition: In-patient Admission Clinical Impression: Metastatic breast cancer Sepsis Qualifiers: Sepsis type: sepsis due to unspecified organism Sepsis acute organ dysfunction status: without acute organ dysfunction Qualified Code(s): A41.9 - Sepsis, unspecified organism Pneumonia Qualifiers: Pneumonia type: due to unspecified organism Laterality: left Lung location: lower lobe of lung Qualified Code(s): J18.9 - Pneumonia, unspecified organism Renal failure Qualifiers: Renal failure chronicity: acute Acute renal failure type: unspecified Qualified Code(s): N17.9 - Acute kidney failure, unspecified Condition: Fair Critical Care Time: Yes Critical Care Time(excluding separately billable procedures): Critical 30-74 mins
[2020-04-07] MEDS ORDERED: Levofloxacin 500MG/100ML D5W 500 MG/100 ML BAG IV STA (07:53)
[2020-04-07] MEDS ORDERED: Zosyn 3.375 GM Vial 3.375 GM in Sodium Chloride 100ML MINI-BAG PLUS 100 ML IV ONE (07:53)
[2020-04-07 07:54] LABS: Absolute Neutrophil Ct (ANC) 8.01 (1.4-6.9); BASOPHIL % 0.1 % (0.0-0.4); Basophil (Absolute #) 0.01 (0-0.4); Eosinophil % 0.5 % (0.00-5.0); Eosinophil (Absolute #) 0.05 (0-0.5); Hematocrit 29.5 % (35-47); Hemoglobin 8.4 gm/dl (12.0-16.0); Lymphocyte (Absolute #) 1.98 (1.0-4.6); Lymphocytes % 18.5 % (24.0-44.0); Mean Cell Volume 110.9 fl (78-100); Mean Corpuscular Hemoglobin 31.6 pg (26-32); Mean Corpuscular Hgb Concent. 28.5 g/dl (32-36); Mean Platelet Volume 9.1 fl (7.5-11.0); Monocyte (Absolute #) 0.67 (0.0-1.3); Monocytes % 6.3 % (0.0-12.0); Neutrophil % 74.6 % (36.0-66.0); Platelet Count 368 K/mm3 (150-450); Red Blood Count 2.66 M/mm3 (4.1-5.4); Red Cell Distribution Width 16.8 % (11.5-14.0); White Blood Count 10.7 K/mm3 (4.0-10.5)
[2020-04-07] MEDS ORDERED: Zosyn 3.375 GM Vial IV ONE (07:58)
[2020-04-07] MEDS ORDERED: Levofloxacin 500MG/100ML D5W 500 MG/100 ML BAG IV ONE (07:58)
[2020-04-07] MEDS ORDERED: Sodium Chloride 0.9% 100 ML IVPB 100 ML IV ONE (07:59)
[2020-04-07] MEDS ORDERED: Sodium Chloride 100ML MINI-BAG PLUS 100 ML IV ONE (08:02)
[2020-04-07 08:22] LABS: ANION GAP 18.9 MEQ/L (5-15); BILIRUBIN,TOTAL 0.8 mg/dL (0.2-1.3); Calcium 10.2 mg/dL (8.4-10.2); Creatinine 1 3.58 mg/dL (0.52-1.04); EST GLOMERULAR FILTRATION RATE 13.8 ML/MIN; Potassium 3.5 mmol/L (3.5-5.1); Total Protein 7.4 g/dL (6.3-8.2)
[2020-04-07 08:24] LABS: Appearance CLOUDY (CLEAR); Bilirubin NEGATIVE (NEGATIVE); Blood NEGATIVE Ery/ul (0-5); Glucose NEGATIVE (NEGATIVE); Ketones NEGATIVE (NEGATIVE); Leukocyte Esterase TRACE (NEGATIVE); Mucus MODERATE /HPF (NEGATIVE); Nitrite NEGATIVE (NEGATIVE); Protein,Urine Dip 30 (Negative); Specific Gravity 1.021 (1.005-1.025); Urobilinogen NEGATIVE mg/dL (0-1)
--- NOTE | 2020-04-07 08:38 | XRAY ---
Indication: Weakness and short of breath. Advanced left breast cancer. Comparison: October 20, 2019. Portable chest demonstrates new right base pleural effusion/pleural thickening and new subtle left base infiltrate/atelectasis. Heart is not enlarged. Stable left paratracheal soft tissue mass again probably metastatic. 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
[2020-04-07] MEDS ORDERED: Sodium Chloride 0.9% W/ 20 mEq KCl/LITER 1,000 ML IV SCH (10:21)
[2020-04-07] MEDS ORDERED: TYLENOL 325 MG PO PRN (10:21)
[2020-04-07] MEDS ORDERED: Zofran 4 MG/2 ML VIAL IV PRN (10:21)
[2020-04-07] MEDS ORDERED: DUONEB 0.5-3 MG/3 ml Neb IH PRN (10:21)
[2020-04-07] MEDS: ENOXAPARIN SODIUM SQ SCH (10:47)
[2020-04-07] MEDS: ROCEPHIN 1 Gm-D5w 50 ml Bag** 1 G/50 ML IVPB IV SCH (10:58)
[2020-04-07] MEDS: Zithromax 500 MG/ 250 ML NaCl Premix 500 MG/250 ML IVPB IV SCH (10:58)
[2020-04-07 11:31] LABS: Slide Review 1 YES
[2020-04-07] MEDS: Sodium Chloride 0.9% 1000 ML 1,000 ML IV SCH ×2 (12:21→21:35)
[2020-04-07] MEDS: MORPHINE SULFATE 2 MG INJ IV PRN (13:12)
[2020-04-08 06:31] LABS: Absolute Neutrophil Ct (ANC) 6.04 (1.4-6.9); BASOPHIL % 0.1 % (0.0-0.4); Basophil (Absolute #) 0.01 (0-0.4); Eosinophil % 0.7 % (0.00-5.0); Eosinophil (Absolute #) 0.06 (0-0.5); Hematocrit 27.1 % (35-47); Hemoglobin 7.6 gm/dl (12.0-16.0); Lymphocyte (Absolute #) 1.62 (1.0-4.6); Lymphocytes % 19.6 % (24.0-44.0); Mean Cell Volume 111.5 fl (78-100); Mean Corpuscular Hemoglobin 31.3 pg (26-32); Mean Platelet Volume 8.9 fl (7.5-11.0); Monocyte (Absolute #) 0.52 (0.0-1.3); Monocytes % 6.3 % (0.0-12.0); Neutrophil % 73.3 % (36.0-66.0); Platelet Count 284 K/mm3 (150-450); Red Blood Count 2.43 M/mm3 (4.1-5.4); Red Cell Distribution Width 17.9 % (11.5-14.0); White Blood Count 8.3 K/mm3 (4.0-10.5)
[2020-04-08 06:38] LABS: ALBUMIN 2.5 g/dL (3.5-5.0); ANION GAP 15.2 MEQ/L (5-15); BILIRUBIN,TOTAL 0.6 mg/dL (0.2-1.3); Calcium 9.4 mg/dL (8.4-10.2); Creatinine 1 3.31 mg/dL (0.52-1.04); EST GLOMERULAR FILTRATION RATE 15.1 ML/MIN; Potassium 3.6 mmol/L (3.5-5.1); Total Protein 6.3 g/dL (6.3-8.2)
[2020-04-08] MEDS: Sodium Chloride 0.9% 1000 ML 1,000 ML IV SCH ×2 (07:21→20:04)
[2020-04-08 08:24] LABS: Slide Review 1 YES
[2020-04-08] MEDS: ROCEPHIN 1 Gm-D5w 50 ml Bag** 1 G/50 ML IVPB IV SCH (10:32)
[2020-04-08] MEDS: ENOXAPARIN SODIUM SQ SCH (10:32)
[2020-04-08] MEDS: Zithromax 500 MG/ 250 ML NaCl Premix 500 MG/250 ML IVPB IV SCH (10:36)
[2020-04-08] MEDS: MORPHINE SULFATE 2 MG INJ IV PRN ×2 (10:39→22:29)
[2020-04-08] MEDS ORDERED: Norco 10/325 MG Tablet PO PRN (11:11)
--- NOTE | 2020-04-08 11:21 | PCM.HP ---
History of Present Illness - Chief Complaint Chief Complaint: Sepsis pneumonia History of Present Illness: is a 60 year old female with know metastatic breast cancer, she has elected with her family for no further treatment, has known extensive metastatic disease including to the brain. she is unable to care for herself and family is unable to provide 24/7 care at this point, she is brought to the hospital in hopes of hospice and ecf care for palliative treatment. - Review of Systems All Other Systems: Unable due to condition (pt denies pain, eyes are crossed but she is pleasant, unable to elaborate on any other symptoms or complaints) Medications & Allergies Home Medications: Home Medication List ondansetron HCL [Ondansetron HCl] 4 mg PO TIDPRN PRN 10/20/19 [History Confirmed 04/07/20] Hydrocodone Bit/Acetaminophen [[place] 10-325 Tablet] 1 each PO Q4H PRN PRN 04/07/20 [History Confirmed 04/07/20] Metoprolol Succinate 50 mg [Toprol Xl 50 MG] 50 mg PO DAILY 04/07/20 [History Confirmed 04/07/20] Allergies/Adverse Reactions: Allergies Allergy/AdvReac Type Severity Reaction Status Date / Time No Known Drug Allergies Allergy Verified 04/07/20 06:59 - Past Medical History Past Medical History: Yes Neurological History: No Pertinent History ENT History: No Pertinent History Cardiac History: Hypertension Respiratory History: No Pertinent History Endocrine Medical History: No Pertinent History Musculoskelatal History: Bone Cancer GI Medical History: No Pertinent History History: No Pertinent History Pyscho-Social History: No Pertinent History Reproductive Disorders: Breast Cancer Comment: Pt denies any major health history except Left breast cancer with mets to bone. Sister states " her last CT scan showed a possible mass in right lung." - Past Surgical History Past Surgical History: No Neuro Surgical History: No Pertinent History Cardiac History: No Pertinent History Respiratory Surgery: No Pertinent History GI Surgical History: No Pertinent History Genitourinary Surgical Hx: No Pertinent History Musculskeletal Surgical Hx: No Pertinent History Female Surgical History: Other Other Surgical History: Hx of breast biopsy. No other surgeries. - Social History Smoking Status: Never smoker Exposure to second hand smoke: Yes (as a child) Alcohol: None Drug Use: none - Physical Exam Vital Signs: Vital Signs - 24 hr Temp Pulse Resp BP Pulse Ox 04/08/20 07:57 97 04/08/20 07:23 97.5 F 101 H 17 108/56 97 04/08/20 04:00 97.9 F 103 H 18 105/53 94 L 04/07/20 20:40 100 04/07/20 20:00 98.4 F 97 H 21 92/46 91 L 04/07/20 16:00 97.2 F 98 H 20 92/50 89 L 04/07/20 11:18 98 General Appearance: no apparent distress, other (eyes are crossed, frail and ill appearing) Eye Exam: other (foreign pupils deviated to midline) Respiratory Exam: normal breath sounds, lungs clear, rhonchi, No respiratory distress Cardiovascular Exam: regular rate/rhythm, normal heart sounds, normal peripheral pulses Gastrointestinal/Abdomen Exam: soft, normal bowel sounds, No tenderness, No mass Extremity Exam: normal inspection, normal range of motion, pelvis stable Results - Labs Lab/Micro Results: Lab Results-Last 24 Hours 04/07/20 04/07/20 04/08/20 Range/Units 07:25 09:48 06:15 WBC 8.3 (4.0-10.5) K/mm3 RBC 2.43 L (4.1-5.4) M/mm3 Hgb 7.6 L (12.0-16.0) gm/dl Hct 27.1 L (35-47) % MCV 111.5 H (78-100) fl MCH 31.3 (26-32) pg MCHC 28.0 L (32-36) g/dl RDW 17.9 H (11.5-14.0) % Plt Count 284 (150-450) K/mm3 MPV 8.9 (7.5-11.0) fl Gran % 73.3 H (36.0-66.0) % Eos # (Auto) 0.06 (0-0.5) Absolute Lymphs (auto) 1.62 (1.0-4.6) Absolute Monos (auto) 0.52 (0.0-1.3) Lymphocytes % 19.6 L (24.0-44.0) % Monocytes % 6.3 (0.0-12.0) % Eosinophils % 0.7 (0.00-5.0) % Basophils % 0.1 (0.0-0.4) % Absolute Granulocytes 6.04 (1.4-6.9) Basophils # 0.01 (0-0.4) Sodium (137-145) mmol/L Potassium (3.5-5.1) mmol/L Chloride (98-107) mmol/L Carbon Dioxide (22-30) mmol/L Anion Gap (5-15) MEQ/L BUN (7-17) mg/dL Creatinine (0.52-1.04) mg/dL Estimated GFR ML/MIN Glucose (74-106) mg/dL Lactic Acid 2.5 H (0.4-2.0) Calcium (8.4-10.2) mg/dL Total Bilirubin (0.2-1.3) mg/dL AST (14-36) U/L ALT (0-35) U/L Alkaline Phosphatase (38-126) U/L Serum Total Protein (6.3-8.2) g/dL Albumin (3.5-5.0) g/dL Slides for Path Review YES YES 04/08/20 Range/Units 06:15 WBC (4.0-10.5) K/mm3 RBC (4.1-5.4) M/mm3 Hgb (12.0-16.0) gm/dl Hct (35-47) % MCV (78-100) fl MCH (26-32) pg MCHC (32-36) g/dl RDW (11.5-14.0) % Plt Count (150-450) K/mm3 MPV (7.5-11.0) fl Gran % (36.0-66.0) % Eos # (Auto) (0-0.5) Absolute Lymphs (auto) (1.0-4.6) Absolute Monos (auto) (0.0-1.3) Lymphocytes % (24.0-44.0) % Monocytes % (0.0-12.0) % Eosinophils % (0.00-5.0) % Basophils % (0.0-0.4) % Absolute Granulocytes (1.4-6.9) Basophils # (0-0.4) Sodium 142 (137-145) mmol/L Potassium 3.6 (3.5-5.1) mmol/L Chloride 113 H (98-107) mmol/L Carbon Dioxide 16 L* (22-30) mmol/L Anion Gap 15.2 H (5-15) MEQ/L BUN 34 H (7-17) mg/dL Creatinine 3.31 H (0.52-1.04) mg/dL Estimated GFR 15.1 ML/MIN Glucose 71 L (74-106) mg/dL Lactic Acid (0.4-2.0) Calcium 9.4 (8.4-10.2) mg/dL Total Bilirubin 0.60 (0.2-1.3) mg/dL AST 294 H (14-36) U/L ALT 41 H (0-35) U/L Alkaline Phosphatase 338 H (38-126) U/L Serum Total Protein 6.3 (6.3-8.2) g/dL Albumin 2.5 L (3.5-5.0) g/dL Slides for Path Review Microbiology 04/07/20 07:24 Urine Culture - Preliminary Urine, Void NO GROWTH TO DATE - Radiology Impressions Radiology Exams & Impressions: Radiology Procedures Category Date Time Status CHEST 1 VIEW (PORTABLE) Stat Exams 04/07/20 07:45 Completed - Other Procedures and Tests Respiratory Therapy 04/07/20 11:17 Oxygen Nasal Cannula 2 lpm Assessment/Plan (1) Pneumonia Current Visit: Yes Status: Acute Qualifiers: Pneumonia type: due to unspecified organism Laterality: left Lung location: lower lobe of lung Qualified Code(s): J18.9 - Pneumonia, unspecified organism Assessment & Plan: continue rocephin/zithromax, plan for ecf placement and palliative consult with hospice. would not be unexpected and family is aware Code(s): J18.9 - PNEUMONIA, UNSPECIFIED ORGANISM (2) Palliative care patient Current Visit: Yes Status: Acute Code(s): Z51.5 - ENCOUNTER FOR PALLIATIVE CARE (3) Metastatic breast cancer Current Visit: Yes Status: Acute Code(s): C50.919 - MALIGNANT NEOPLASM OF UNSP SITE OF UNSPECIFIED FEMALE BREAST (4) Renal failure Current Visit: Yes Status: Acute Qualifiers: Renal failure chronicity: acute Acute renal failure type: unspecified Louis lified Code(s): N17.9 - Acute kidney failure, unspecified
[2020-04-08] MEDS: Toprol Xl 50 MG PO SCH (12:14)
[2020-04-08] MEDS: Nystatin SUSPENSION 60 ML PO SCH ×3 (12:14→22:29)
[2020-04-09] MEDS: Sodium Chloride 0.9% 1000 ML 1,000 ML IV SCH ×3 (07:17→20:12)
[2020-04-09] MEDS: MORPHINE SULFATE 2 MG INJ IV PRN ×3 (08:00→22:22)
--- NOTE | 2020-04-09 08:41 | PCM.NOTE ---
Date and Time: 04/09/20 0839 Subjective Assessment: patient having difficulty eating/choking per nursing. she denies pain, unable to answer other questions. Objective Exam General Appearance: no apparent distress Skin Exam: other (red inflammed chest well left side, ulcerated) Respiratory Exam: normal breath sounds, lungs clear, No respiratory distress Cardiovascular Exam: regular rate/rhythm, normal heart sounds Gastrointestinal/Abdomen Exam: soft OBJECTIVE DATA Vital Signs: Vital Signs - 24 hr Temp Pulse Resp BP Pulse Ox 04/09/20 08:00 98 F 87 16 125/60 97 04/09/20 07:24 99 04/09/20 04:59 77 15 97 04/09/20 00:00 97.8 F 91 H 16 117/61 93 L 04/08/20 20:20 94 L 04/08/20 19:58 97.9 F 88 16 120/53 100 04/08/20 16:00 97.6 F 91 H 16 121/59 100 04/08/20 12:00 97.9 F 98 H 18 109/55 98 Oxygen-Last 24 hours Oxygen Flowrate (L/min)-RT 2 Oxygen Flowrate (L/min)-RT 2 Oxygen Flowrate (L/min)-RT 2 Pain Assessment - Last Documented Pain Intensity 1 Pain Scale Used 0-10 Pain Scale Intake and Output: Intake & Output 04/06/20 04/07/20 04/08/20 04/09/20 11:59 11:59 11:59 11:59 Intake Total 1969 2359 Output Total 50 200 Balance 1919 2159 Weight 78 kg 78.1 kg Radiology Exams: Radiology Procedures Category Date Time Status CHEST 1 VIEW (PORTABLE) Stat Exams 04/07/20 07:45 Completed Assessment/Plan (1) Metastatic breast cancer Current Visit: Yes Status: Acute Assessment & Plan: endstage disease, family wishes to focus on comfort measures, no aggressive treatment. will admit to [facility] for hospice/end of life care. would not be unexpected in the near future. Code(s): C50.919 - MALIGNANT NEOPLASM OF UNSP SITE OF UNSPECIFIED FEMALE BREAST (2) Palliative care patient Current Visit: Yes Status: Acute Code(s): Z51.5 - ENCOUNTER FOR PALLIATIVE CARE (3) Pneumonia Current Visit: Yes Status: Acute Qualifiers: Pneumonia type: due to unspecified organism Laterality: left Lung location: lower lobe of lung Qualified Code(s): J18.9 - Pneumonia, unspecified organism Code(s): J18.9 - PNEUMONIA, UNSPECIFIED ORGANISM (4) Renal failure Current Visit: Yes Status: Acute Qualifiers: Renal failure chronicity: acute Acute renal failure type: unspecified Qualified Code(s): N17.9 - Acute kidney failure, unspecified
[2020-04-09] MEDS: Nystatin SUSPENSION 60 ML PO SCH ×4 (09:35→21:45)
[2020-04-09] MEDS: Toprol Xl 50 MG PO SCH ×2 (09:35→09:39)
[2020-04-10] MEDS: Sodium Chloride 0.9% 1000 ML 1,000 ML IV SCH (06:01)
[2020-04-10] MEDS: MORPHINE SULFATE 2 MG INJ IV PRN ×2 (08:31→12:31)
--- NOTE | 2020-04-10 08:47 | PCM.DS ---
Discharge Summary Date of Admission: 04/07/20 10:20 Admitting Physician: DUSTIN BRUNSON Primary Care Provider: DUSTIN BRUNSON Allergies Allergies No Known Drug Allergies Allergy (Verified 04/07/20 06:59) Hospital Summary - Hospital Course Hospital Course: Pt is 60 yo female pt of Dr. Brunson' with metastatic breast cancer, end stage, who was initially treated for some LLE pneumonia and acute renal injury as well. Pt is now being treated palliatively and antibiotics were discontinued. She is unable to take po; has been getting IV morphine for pain control. Urine culture was negative. Pt is to be discharged to [place] today. - Vitals & Intake/Output Vital Signs: Vital Signs Temperature 97.4 F 04/10/20 07:52 Pulse Rate 93 H 04/10/20 07:52 Respiratory Rate 16 04/10/20 07:52 Blood Pressure 122/59 04/10/20 07:52 O2 Sat by Pulse Oximetry 95 04/10/20 07:52 Intake & Output: Intake & Output 04/07/20 04/08/20 04/09/20 04/10/20 11:59 11:59 11:59 11:59 Intake Total 1969 2359 2095 Output Total 50 200 450 Balance 1919 2159 1645 Weight 78 kg 78.1 kg 78.3 kg 80.5 kg - Lab Result Diagrams: 04/08/20 06:15 04/08/20 06:15 Micro Results-Entire Visit: Microbiology 04/07/20 07:24 Urine Culture - Final Urine, Void NO GROWTH 04/07/20 07:25 Blood Culture - Preliminary Blood NO GROWTH TO DATE 04/07/20 07:45 Blood Culture - Preliminary Blood NO GROWTH TO DATE - Procedures and Test Procedures and Tests throughout Hospitalization: Therapy Orders & Screens 04/07/20 11:17 Oxygen Nasal Cannula 2 lpm Comment: Diagnosis: Sepsis pneumonia Discharge Exam General Appearance: no apparent distress, other (Pt opens eyes to voice; somewhat somnolent.) Neurologic Exam: other (nods "yes" when I ask to examine her.) Respiratory Exam: normal breath sounds, lungs clear, wheezing, other (L upper chest with macular erythema), No crackles/rales, No rhonchi Cardiovascular Exam: regular rate/rhythm, normal heart sounds, No murmur Gastrointestinal/Abdomen Exam: soft, No distention Extremity Exam: swelling Skin Exam: warm, dry Final Diagnosis/Problem List - Final Discharge Diagnosis/Problem (1) Palliative care patient Current Visit: Yes Status: Acute Assessment & Plan: is imminent and not unexpected, as noted in Dr. Brunson' previous notes. Code(s): Z51.5 - ENCOUNTER FOR PALLIATIVE CARE (2) Metastatic breast cancer Current Visit: Yes Status: Chronic Code(s): C50.919 - MALIGNANT NEOPLASM OF [facility] SITE OF UNSPECIFIED FEMALE BREAST - Discharge Disposition: Skilled Care @ [facility] Condition: Poor Prescriptions: Continue ondansetron HCL [Ondansetron HCl] 4 mg PO TIDPRN PRN PRN Reason: Nausea Discontinued Hydrocodone Bit/Acetaminophen [[place] 10-325 Tablet] 1 each PO Q4H PRN PRN PRN Reason: Pain Metoprolol Succinate 50 mg [Toprol Xl 50 MG] 50 mg PO DAILY Follow up with: DUSTIN BRUNSON MD [Primary Care Provider] - 1 Week
[2020-04-10] MEDS: Toprol Xl 50 MG PO SCH (09:46)
[2020-04-10] MEDS: Nystatin SUSPENSION 60 ML PO SCH ×2 (09:46→12:33)
[2020-04-10 11:53] VITALS: BP 123/60; PULSE 92; O2SAT 97
--- NOTE | 2020-04-10 12:13 | PCM.DCORD ---
- Discharge Disposition: Skilled Care @ [facility] Condition: Poor Prescriptions: New Morphine Sulfate/0.9% NaCl/Pf [Morphine 2 mg/ml-0.9% NaCl Syr] 2 mg SQ Q4H PRN #6 syringe MDD 12 mg PRN Reason: pain or agitation Continue ondansetron HCL [Ondansetron HCl] 4 mg PO TIDPRN PRN PRN Reason: Nausea Discontinued Hydrocodone Bit/Acetaminophen [[place] 10-325 Tablet] 1 each PO Q4H PRN PRN PRN Reason: Pain Metoprolol Succinate 50 mg [Toprol Xl 50 MG] 50 mg PO DAILY Additional Instructions: [facility] ORDERS: -PALLIATIVE CARE -OXYGEN @ 2L NC -DIET TOLERATED -SEE ATTACHED MEDICATION LIST FOR MEDICATION ORDERS -ROUTINE ROBLERO CATH CARE Follow up with: DUSTIN BRUNSON MD [Primary Care Provider] - 1 Week
== END 2020-04-10 13:35 | DRG 951 ==
LOC: ED 06:41 → MED SURG 10:20
PROVIDERS: ADMIT Family Medicine; ATTEND Family Medicine
DX: Z51.5 Encounter for palliative care (principal); J18.9 Pneumonia, unspecified organism; C79.31 Secondary malignant neoplasm of brain; C79.51 Secondary malignant neoplasm of bone; N17.9 Acute kidney failure, unspecified; C50.919 Malignant neoplasm of unspecified site of unspecified female breast; R53.1 Weakness; I10 Essential (primary) hypertension; Z79.899 Other long term (current) drug therapy
CPT/HCPCS: 36000; 36415; 71045; 80053; 81001; 83605; 83735; 85025; 87040; 87086; 93005; 94760; 96360; 96361; 96365; 96368; 99285; 99291; J0456; J0696; J1650; J1956; J2270; A9270-GY